=== PATIENT | female | born 1945 | race Caucasian/White ===

== ENCOUNTER → 2017-08-30 | Outpatient (CLI) | payer OTHER ==
[~2017-08-30] MED LIST: IOPAMIDOL (ISOVUE-300) 100 ML BTL ONE
== END ==
LOC: FIMAGING 13:57
PROVIDERS: ATTEND Family Medicine
DX: K83.1 Obstruction of bile duct (principal)
CPT/HCPCS: 74160; Q9967

== ENCOUNTER → 2017-10-12 | Outpatient (CLI) | payer OTHER ==
[~2017-10-12] MED LIST changes: +GADOBUTROL 10 ML VIAL IVP ONE; -IOPAMIDOL (ISOVUE-300) 100 ML BTL ONE
== END ==
LOC: FIMAGING 18:28
PROVIDERS: ATTEND Family Medicine
DX: R74.8 Abnormal levels of other serum enzymes (principal); R19.7 Diarrhea, unspecified; K44.9 Diaphragmatic hernia without obstruction or gangrene; R93.2 Abnormal findings on diagnostic imaging of liver and biliary tract; K80.20 Calculus of gallbladder without cholecystitis without obstruction
CPT/HCPCS: 74183; A9585

== ENCOUNTER 2017-10-15 16:15 | Emergency (ER) | payer OTHER ==
--- NOTE | 2017-10-15 16:48 | EDPHY ---
H & P Stated Complaint: Persistent vertigo x 10 yrs ,hx n/v/d;?cognitve problems Time Seen by Provider: 10/15/17 16:48 - Personal History Current Tetanus Diphtheria and Acellular Pertussis (TDAP): Unsure - Medical/Surgical History Hx Asthma: Yes Hx Chronic Respiratory Disease: No Hx Diabetes: No Hx Cardiac Disease: No Hx Renal Disease: No Hx Cirrhosis: No Hx Alcoholism: No Hx HIV/AIDS: No Hx Splenectomy or Spleen Trauma: No Other PMH: asthma, hypothyroid, dizziness - Social History Smoking Status: Never smoked Constitutional: Initial Vital Signs Temperature (C) 36.6 C 10/15/17 16:25 Heart Rate 79 10/15/17 16:25 Respiratory Rate 18 10/15/17 16:25 Blood Pressure 164/104 H 10/15/17 16:25 O2 Sat (%) 98 10/15/17 16:25 O2 Delivery Mode Room Air Allergies/Adverse Reactions: No Known Allergies Allergy (Verified 10/15/17 16:24) Home Medications: Medication Instructions Recorded "Specially Compounded T3-T4 10/15/17 Albuterol Hfa Anes Only [Proair 2 puffs IH QID 10/15/17 Hfa Icu (*)] Meclizine HCl [Meclizine HCl 12.5 12.5 mg PO QID PRN #10 tab 10/15/17 mg (*)] Medical Decision Making - Diagnostics Imaging Results: Imaging Impressions Brain MRI 10/15/17 17:29 Impression: 1. Multiple nonspecific hyperintense T2/FLAIR signal abnormalities in the white matter of bilateral cerebral hemispheres and brainstem. Differential diagnosis includes severe microvascular ischemic gliosis, versus less likely postinfectious/post inflammatory sequela. 2. A few old lacunar infarcts bilateral basal ganglia. 3. No acute infarct, acute hemorrhage, hydrocephalus or mass effect. 4. No brainstem or cerebellar infarcts or enhancing lesions. Findings and recommendations discussed with Emergency Department physician, Mukesh Henson MD, at 1932 hour, 10/15/2017. Final report concurs with initial preliminary interpretation. Imaging: Discussed imaging studies w/ call or contact centre team leader Radiologist, I viewed and interpreted images myself ED Course/Re-evaluation: CHIEF COMPLAINT: Dizziness, N/V HISTORY OF PRESENT ILLNESS: The patient is a 71 y/o female with a history of vertigo and asthma who presents with intermittent but progressive vertigo, nausea, and vomiting for the last 6 weeks. She has experienced intermittent vertigo over the last 10 years, but reports these more recent episodes over the last several weeks are more severe. During the first two weeks, she had moderate diarrhea that has since resolved. She had an abdominal CT in August related to her GI symptoms and elevated lipase and amylase that showed possible extrahepatic biliary obstruction. A follow-up abdominal MRI 3 days ago showed biliary dilation without obvious etiology. Last night she developed some mild abdominal pain that radiates around her right side to her back. This morning her dizziness was associated with "forgetfulness" and her is quite concerned about her. Her dizziness resolves while at rest and is worse when she is moving around her house. She has been treating her symptoms with [place] herbs and acupuncture without improvement. She has never had brain imaging performed. REVIEW OF SYSTEMS: A 10 point review of systems was performed and is negative with the exception of the elements mentioned in the history of present illness. PHYSICAL EXAM: HR, BP, O2 Sat, RR. Temp noted General Appearance: Alert, well hydrated, appropriate, and non-toxic appearing. Head: Atraumatic without scalp tenderness or obvious injury Eyes: Pupils equal, round, reactive to light and accommodation, EOMI, no trauma , no injection. Horizontal nystagmus when looking to the right. Ears: Clear bilaterally, no perforation, normal landmarks Nose: Atraumatic, no rhinorrhea, clear. Throat: Mucus membranes moist. Neck: Supple, nontender, no lymphadenopathy. Respiratory: No retractions, no distress, no wheezes, and no accessory muscle use. Lungs are clear to auscultation bilaterally. Cardiovascular: Regular rate and rhythm, no murmurs, rubs, or gallops. Good capillary refill all extremities. Gastrointestinal: Abdomen is soft, nontender, non-distended, no masses, no rebound, no guarding, no peritoneal signs. Musculoskeletal: Normal active ROM of all extremities, atraumatic. Neurological: Alert, appropriate, and interactive. The patient has non-focal cranial nerves, motor, sensory, and cerebellar exam. Mildly tremulous. Skin: No rashes, good turgor, no nodules on palpation. Past medical history: Asthma, hypothyroidism, vertigo Past surgical history: noncontributory Family history:Noncontributory Social history: , at bedside. No tobacco or alcohol use. Prior medical records reviewed including admission 12/21/15 for dyspnea. DIAGNOSTICS/PROCEDURES/CRITICAL CARE TIME: Brain MRI with and without IV contrast: negative for acute process, multiple white matter abnormalities DIFFERENTIAL DIAGNOSIS: The differential diagnosis for the patient's dizziness included but was not limited to peripheral and central causes of vertigo, orthostatic causes including dehydration, cardiogenic and neurogenic causes, and blood loss. MEDICAL DECISION MAKING: This is a 71 y/o female with a 10-year history of vertigo who presents with a 6- week history of vertiginous symptoms and associated nausea and vomiting. Recent abdominal imaging related to her N/V and elevated lipase showed biliary dilation without etiology. On exam, she is much more comfortable resting with her eyes closed and avoids moving her head. She has horizontal nystagmus when looking to the right. Her neuro exam is otherwise normal. She is afebrile and her abdomen is benign. Her symptoms could represent vertigo, but due to the long timeframe I need to rule out structural FILES SUPERVISOR and neurogenic causes with brain imaging. Brain MRI with and without contrast ordered. Plan for IV, labs, UA, EKG, and symptom management. 1L IV NS, 4mg IV Zofran, and 12.5mg PO Meclizine administered. Reassessed patient and discussed CT findings. CT is negative for acute process. She feels mildly improved after medication and is requesting more Zofran. She will receive a dose of Reglan here and then will be discharged home with standard vertigo care and follow up instructions with ENT and neurology. She is comfortable with this plan. will assist in home care. - Data Points Laboratory Results: Laboratory Results 10/15/17 18:15 10/15/17 18:15 10/15/17 10/15/17 10/15/17 18:15 18:15 18:15 WBC 8.93 10^3/uL 10^3/uL (3.80-9.50) RBC 5.11 10^6/uL 10^6/uL (4.18-5.33) Hgb 14.6 g/dL g/dL (12.6-16.3) POC Hgb Hct 44.1 % % (38.0-47.0) POC Hct MCV 86.3 fL fL (81.5-99.8) MCH 28.6 pg pg (27.9-34.1) MCHC 33.1 g/dL g/dL (32.4-36.7) RDW 15.3 % H % (11.5-15.2) Plt Count 304 10^3/uL 10^3/uL (150-400) MPV 9.8 fL fL (8.7-11.7) Neut % (Auto) 84.0 % H % (39.3-74.2) Lymph % (Auto) 10.4 % L % (15.0-45.0) [place] % (Auto) 4.6 % % (4.5-13.0) Eos % (Auto) 0.3 % L % (0.6-7.6) Baso % (Auto) 0.4 % % (0.3-1.7) Nucleat RBC Rel Count 0.0 % % (0.0-0.2) Absolute Neuts (auto) 7.49 10^3/uL H 10^3/uL (1.70-6.50) Absolute Lymphs (auto) 0.93 10^3/uL L 10^3/uL (1.00-3.00) Absolute Monos (auto) 0.41 10^3/uL 10^3/uL (0.30-0.80) Absolute Eos (auto) 0.03 10^3/uL 10^3/uL (0.03-0.40) Absolute Basos (auto) 0.04 10^3/uL 10^3/uL (0.02-0.10) Absolute Nucleated RBC 0.00 10^3/uL 10^3/uL (0-0.01) Immature Gran % 0.3 % % (0.0-1.1) Immature Gran # 0.03 10^3/uL 10^3/uL (0.00-0.10) PT 12.6 SEC SEC (12.0-15.0) INR 0.92 (0.83-1.16) APTT 26.3 SEC SEC (23.0-38.0) POC Sodium Sodium 142 mEq/L mEq/L (134-144) POC Potassium Potassium 4.3 mEq/L mEq/L (3.5-5.2) POC Chloride Chloride 108 mEq/L mEq/L (97-110) Carbon Dioxide 25 mEq/l mEq/l (22-31) Anion Gap 9 mEq/L mEq/L (8-16) POC BUN BUN 9 mg/dL mg/dL (7-23) Creatinine 0.8 mg/dL mg/dL (0.6-1.0) POC Creatinine Estimated GFR > 60 Glucose 122 mg/dL H mg/dL (70-100) POC Glucose Calcium 9.7 mg/dL mg/dL (8.5-10.4) Total Bilirubin 0.5 mg/dL mg/dL (0.1-1.4) Conjugated Bilirubin 0.3 mg/dL mg/dL (0.0-0.5) Unconjugated Bilirubin 0.2 mg/dL mg/dL (0.0-1.1) AST 135 IU/L H IU/L (14-46) ALT 108 IU/L H IU/L (9-52) Alkaline Phosphatase 119 IU/L IU/L (38-126) Total Protein 6.3 g/dL g/dL (6.3-8.2) Albumin 3.7 g/dL g/dL (3.5-5.0) Lipase 241 IU/L IU/L (23-300) 10/15/17 18:10 WBC RBC Hgb POC Hgb 15.3 gm/dL gm/dL (12.6-16.3) Hct POC Hct 45 % % (38-47) MCV MCH MCHC RDW Plt Count MPV Neut % (Auto) Lymph % (Auto) [place] % (Auto) Eos % (Auto) Baso % (Auto) Nucleat RBC Rel Count Absolute Neuts (auto) Absolute Lymphs (auto) Absolute Monos (auto) Absolute Eos (auto) Absolute Basos (auto) Absolute Nucleated RBC Immature Gran % Immature Gran # PT INR APTT POC Sodium 143 mEq/L mEq/L (134-144) Sodium POC Potassium 4.2 mEq/L mEq/L (3.3-5.0) Potassium POC Chloride 108 mEq/L mEq/L (97-110) Chloride Carbon Dioxide Anion Gap POC BUN 8 mg/dL mg/dL (7-23) BUN Creatinine POC Creatinine 0.8 mg/dL mg/dL (0.6-1.0) Estimated GFR Glucose POC Glucose 127 mg/dL H mg/dL (70-100) Calcium Total Bilirubin Conjugated Bilirubin Unconjugated Bilirubin AST ALT Alkaline Phosphatase Total Protein Albumin Lipase Medications Given: Discontinued Medications Meclizine HCl (Meclizine Hcl) 12.5 mg PO EDNOW ONE Stop: 10/15/17 17:31 Last Admin: 10/15/17 18:31 Dose: 12.5 mg Ondansetron HCl (Zofran) 4 mg IVP EDNOW ONE Stop: 10/15/17 17:28 Last Admin: 10/15/17 18:31 Dose: 4 mg Point of Care Test Results: 10/15/17 18:10 POC Sodium 143 POC Potassium 4.2 POC Chloride 108 POC BUN 8 POC Creatinine 0.8 POC Glucose 127 H Departure - Departure Disposition: Home, Routine, Self-Care Clinical Impression: Vertigo Condition: Good Instructions: Meclizine (By mouth), Ondansetron (By mouth), Vertigo (ED) Additional Instructions: 1. Take Meclizine as directed for vertigo symptoms. It may make you drowsy. Do not use prior to driving. 2. Use Zofran as prescribed as needed for nausea and vomiting. 3. Follow up with ENT for unimproved symptoms over the next few days. 4. Follow up with neurologist in the next week. 5. Return to the ED for worsening of condition. Referrals: Guido aMbry MD [Medical Doctor] - As per Instructions Lamar Franz MD [Primary Care Provider] - As per Instructions Jason Bueno MD [Medical Doctor] - As per Instructions Prescriptions: Meclizine HCl [Meclizine HCl 12.5 mg (*)] 12.5 mg PO QID PRN #10 tab PRN Reason: Dizziness Report Scribed for: Mukesh Henson Report Scribed by: Malka Alvarez Date of Report: 10/15/17 Time of Report: 17:13
[2017-10-15] MEDS ORDERED: ONDANSETRON 4 MG/2 ML VIAL IVP ONE (17:27)
[2017-10-15] MEDS ORDERED: MECLIZINE HCL 25 MG TAB PO ONE (17:30)
[2017-10-15 18:23] LABS: PLATELET COUNT 304 10^3/uL (150-400)
[2017-10-15 18:33] LABS: INR 0.92 (0.83-1.16); PROTIME(PATIENT) 12.6 SEC (12.0-15.0)
[2017-10-15] MEDS ORDERED: GADOBUTROL 10 ML VIAL IVP ONE (18:45)
[2017-10-15] MEDS ORDERED: METOCLOPRAMIDE 10 MG/2 ML VIAL IVP ONE (19:38)
[2017-10-15 19:59] VITALS: BP 182/104; PULSE 95; RESP 16; TEMP 98.4; O2SAT 95
== END 2017-10-15 19:58 | disposition home or self-care (01) ==
DX: R42 Dizziness and giddiness (principal); J45.909 Unspecified asthma, uncomplicated
CPT/HCPCS: 70553; 96374; 96375; 99285; A9585; J2405; J2765; 82947-QW

== ENCOUNTER 2017-11-06 16:35 | Inpatient (IN) | payer OTHER ==
--- NOTE | 2017-11-06 18:14 | EDPHY ---
H & P Time Seen by Provider: 11/06/17 17:54 HPI/ROS: CHIEF COMPLAINT: Intractable vertigo HISTORY OF PRESENT ILLNESS: The patient has had which she terms intractable vertigo starting on August of last year lasting for the past 2 months. She was seen in the ER and had a negative MRI of her brain on October 15. She was on meclizine but stopped working 4 days ago. She is here with severe vertigo which she describes as dizziness which happens every time she stands up or turns her head. Says he did with nausea and vomiting she is unable to stand walk or eat or drink anything. The meclizine stopped working 4 days ago. Not associated with neck pain or headache. It is associated with intermittent diarrhea and severe anxiety and weakness. REVIEW OF SYSTEMS: Eye: no change in vision ENT: no sore throat Cardiac: no chest pain or syncope Pulmonary: no cough or SOB Abdomen: No abdominal pain or vomiting Musculoskeletal: no back pain or neck pain Skin: no rash Neuro: no headache Constitutional: no fever : no urinary symptoms A comprehensive 10 point review of systems is otherwise negative aside from elements mentioned in the history of present illness. PAST MEDICAL HISTORY: Includes asthma hypothyroid and vertigo Social history: General Appearance: Alert and conversant, cooperative. Eyes: No scleral icterus. ENT, Mouth: Dry mucous membranes Respiratory: Normal respiratory effort, breath sounds equal, lungs are clear to auscultation. Cardiovascular: Regular rate and rhythm. Gastrointestinal: Abdomen is soft and non tender. Neurological: Alert, face symmetric, normal motor and sensory in extremities. Speech fluent, extraocular motion intact, [id number] normal bilaterally, no pronator drift. Skin: Warm and dry, no rashes. Musculoskeletal: No peripheral edema. Psychiatric: Not agitated. Emergency Department course/MDM: IV fluid hydration, Zofran 4 mg IV, Valium 5 mg IV. Admission for dehydration, intractable symptoms of dizziness for 2 months, currently unable to tolerate oral fluids or walk very well. Patient tells me she was sent by her primary care practice Dr. Franz for admission for intractable vertigo. 1944: Venous CO2 of 14, patient clinically also very dehydrated, admission for IV fluids for severe dehydration. Smoking Status: Never smoked Constitutional: Initial Vital Signs Temperature (C) 36.4 C 11/06/17 17:04 Heart Rate 94 11/06/17 17:04 Respiratory Rate 18 01/09/18 17:04 Blood Pressure 114/97 H 11/06/17 17:04 O2 Sat (%) 94 11/06/17 17:04 O2 Delivery Mode Room Air Allergies/Adverse Reactions: No Known Allergies Allergy (Verified 11/06/17 17:03) Home Medications: Medication Instructions Recorded "Specially Compounded T3-T4 10/15/17 Albuterol Hfa Anes Only [Proair 2 puffs IH QID 10/15/17 Hfa Icu (*)] Herbals/Supplements -Info Only 1 ea PO DAILY 11/06/17 Medical Decision Making - Diagnostics EKG Interpretation: 12-lead EKG interpreted by me; official reading is in trace master. My interpretation is sinus rhythm, low voltage in frontal leads, rate 80. Differential Diagnosis: Differential diagnosis considered for dizziness including but not limited to peripheral and central causes of vertigo, orthostatic causes including dehydration, and blood loss. Consult/Admit Bed Type: [place] [id number] - Data Points Medications Given: Albuterol (Ventolin Hfa Inhaler) 2 puffs IH QID SIERRA Stop: 05/05/18 20:59 Last Admin: 11/06/17 21:13 Dose: Not Given Hydralazine HCl (Apresoline) 10 mg IVP Q6HRS PRN PRN Reason: SBP Greater Than 160 Stop: 05/05/18 20:41 Last Admin: 11/06/17 22:01 Dose: 10 mg Lorazepam (Ativan Injection) 0.5 - 1 mg IVP Q8HRS PRN PRN Reason: Anxiety, Unable to Take PO Stop: 05/05/18 20:39 Last Admin: 11/06/17 22:01 Dose: 1 mg Discontinued Medications Diazepam (Valium Injection) 5 mg IVP EDNOW ONE Stop: 11/06/17 18:17 Last Admin: 11/06/17 18:32 Dose: 5 mg Sodium Chloride (Ns) 1,000 mls @ 0 mls/hr IV EDNOW ONE; Wide Open PRN Reason: Protocol Stop: 11/06/17 18:17 Last Admin: 11/06/17 18:32 Dose: 1,000 mls Sodium Chloride (Ns) 1,000 mls @ 0 mls/hr IV EDNOW ONE; Wide Open PRN Reason: Protocol Stop: 11/06/17 19:45 Last Admin: 11/06/17 21:22 Dose: Not Given Ondansetron HCl (Zofran) 4 mg IVP EDNOW ONE Stop: 11/06/17 18:17 Last Admin: 11/06/17 18:32 Dose: 4 mg Departure - Departure Disposition: [facility] Clinical Impression: Vertigo, Dehydration Condition: Good
[2017-11-06] MEDS ORDERED: ONDANSETRON 4 MG/2 ML VIAL IVP ONE (18:16)
[2017-11-06] MEDS ORDERED: DIAZEPAM 10 MG/2 ML SYR IVP ONE (18:16)
[2017-11-06] MEDS ORDERED: NS 1,000 ML IV ONE ×2 (18:16→19:44)
[2017-11-06 18:35] LABS: PLATELET COUNT 327 10^3/uL (150-400)
--- NOTE | 2017-11-06 18:39 | CPEKG ---
Heart Rate: 80 RR Interval: 750 P-R Interval: 168 QRSD Interval: 78 QT Interval: 400 QTC Interval: 462 P [place]: 73 QRS [place]: -14 T Wave [place]: 45 EKG Severity - OTHERWISE NORMAL ECG - EKG Impression: SINUS RHYTHM EKG Impression: LOW VOLTAGE IN FRONTAL LEADS Electronically Signed By: Hamilton Rojas 06-Nov-2017 18:39:38
[2017-11-06] MEDS ORDERED: ACETAMINOPHEN 325 MG TAB PO PRN (20:40)
[2017-11-06] MEDS ORDERED: PROMETHAZINE HCL 25 MG/ML INJ IVP PRN (20:40)
[2017-11-06] MEDS ORDERED: ONDANSETRON DISINTEGRATING 4 MG TAB PO PRN (20:40)
[2017-11-06] MEDS ORDERED: ALBUTEROL 200 PUFFS/18 GM MDI IH SCH (21:00)
--- NOTE | 2017-11-06 21:18 | GHP ---
[f rep st] HISTORY AND PHYSICAL DATE OF ADMISSION: 11/06/2017 CHIEF COMPLAINT: Dizziness/vertigo. HISTORY OF PRESENT ILLNESS: This is a 71-year-old female, who has had a past history of vertigo in t he last 10 years, in which episodes occur about twice a year, last for a week or so, and she usually gets acupuncture and herbal medicine to treat. However, in August, she started with an episode sim ilar to previous episodes, but it has continued until now. It has been especially worse in the last week or so. Meclizine does nothing to help. She describes the vertigo as she feels like she is spin jerrell rather than the world around her is spinning. It is actually better when she closes her eyes. She has had some nausea and some vomiting and decreased p.o. intake. She has also had chronic diarrh ea since then. This is also accompanied with an elevated lipase in July and elevated liver functi on tests in early September. She had a GI panel that was negative in July as well. Over the last week, she says the initial symptoms were generalized weakness and anxiety. She is no longer able to care for herself and primary care doctor sent her in. She also has a history of asthma, this appears to be quiescent. REVIEW OF SYSTEMS: A 10-point review of systems was obtained, other than stated was negative. PAST MEDICAL HISTORY: 1. Asthma. 2. Hypothyroidism. SOCIAL HISTORY: . No tobacco or alcohol. FAMILY HISTORY: Both parents are . PHYSICAL EXAMINATION: VITAL SIGNS: Afebrile, blood pressure is elevated at 194/124, heart rate 80, oxygen saturation 92% on room air. GENERAL: The patient is well developed, in no apparent distress. HEENT: Nonicteric sclerae. I do not see a lot in the way of nystagmus. NECK: Supple. No thyrom egaly. LUNGS: Good effort. Clear to auscultation bilaterally. CARDIOVASCULAR: Regular rate and r hythm. No murmurs, gallops. ABDOMEN: Positive bowel sounds. Soft, nontender, nondistended. No he patosplenomegaly. EXTREMITIES: No clubbing, cyanosis, or edema. SKIN: Without rash, warm, intact. NEUROLOGIC: Alert and oriented x3. Moving all 4 extremities equally. PSYCHIATRIC: Normal mood a nd affect. LABORATORY DATA: Chemistry is essentially normal, though a little bit acidotic. CBC is essentially normal as well. MRI of the brain, done 10/15/2017, shows no CVA. Abdominal MRI shows biliary dilata tion, with no visible etiology, up to [address] scan of the abdomen and pelvis done early August howed extrahepatic biliary obstruction. ASSESSMENT: This is a 71-year-old female presenting with several months worth of possible vertigo ve rsus lightheadedness. PLAN: 1. Vertigo/dizziness. Her description of her symptoms are not completely consistent with vertigo. Meclizine was working for her until about a week ago. She does have an appointment with both ENT and Neurology next week. We will get Neurology to see the patient in the morning. I am going to go ahe ad and order a CTA of the head and neck to look for vertebrobasilar insufficiency. We will also orde r orthostatic vital signs and treat her anxiety with benzodiazepines. 2. Biliary dilatation. I am not sure what the workup has been outpatient, but I could consider endo scopic pancreatic ultrasound. 3. Asthma. This appears quiescent. 4. Diarrhea. Seems to be a little bit better. Her GI pathogen panel is negative. /[id number]/MODL
[2017-11-06] MEDS: LORazepam 2 MG/ML INJ IVP PRN (22:01)
[2017-11-06] MEDS: hydrALAZINE 20 MG/ML VIAL IVP PRN (22:01)
[2017-11-06] MEDS: ONDANSETRON 4 MG/2 ML VIAL IVP PRN (22:20)
[2017-11-06] MEDS: ALBUTEROL HFA 200 PUFFS/8.5 GM MDI IH SCH (22:30)
[2017-11-07] MEDS: ALBUTEROL HFA 200 PUFFS/8.5 GM MDI IH SCH ×4 (05:18→20:06)
[2017-11-07] MEDS: ONDANSETRON 4 MG/2 ML VIAL IVP PRN ×3 (05:39→22:05)
[2017-11-07] MEDS ORDERED: NS 500 ML IV ONE (06:00)
[2017-11-07] MEDS: LORazepam 2 MG/ML INJ IVP PRN ×2 (09:02→17:09)
[2017-11-07] MEDS: ENOXAPARIN 40 MG/0.4 ML SYR SC SCH (09:03)
--- NOTE | 2017-11-07 10:30 | PDMN ---
Medical Necessity Medical necessity: est los>2mn for eval and rx of persistent veritigo/ dizziness x 2 mos, diarrhea, and biliary dilatation; admit for neuro consult and imaging, consider endoscopic pancreatic US ; comorbid asthma, hx vertigo; per order and H&P 11/06/17
[2017-11-07] MEDS ORDERED: IOPAMIDOL (ISOVUE 370) 100 ML BTL IV ONE (10:37)
--- NOTE | 2017-11-07 11:19 | NEUROPROG ---
Assessment: HOSPITAL NEUROLOGY CONSULT REQUESTING: Jv Alarcon MD REASON: vertigo HPI: 71 year old woman with longstanding "mild vertigo" presented to our ED 11/06 with worsening symptoms. She describes at least 10 years of mild symptoms characterized as a sense of movement inside her head. She denies pearl room-spinning vertigo. Her sensation manifests when she stands up or turns her head. She states sometimes she has a sense of mild lightheadedness. She has been treated successfully in the past with acupuncture and [place] herbs. However, over the last month she states her symptoms have significantly worsened. The sense of movement in her head has escalated. She now occasionally gets nauseated. She feels her cognition is blunted during episodes. She feels very anxious with the episodes , which is new. She is also getting flushed, sweaty with the episodes. She has a sense of generalized weakness with her episodes, but nothing focal. She finds sitting down and closing her eyes helps improve her symptoms. She is not having any visual disturbance including vision loss or double vision. No headaches or neck pain. No hearing changes. No sensory loss, speech/language changes. She has felt unsteady on her feet recently, but no falls. No incontinence, but recently had some diarrhea. No adventitial movements. She has never been evaluated by ENT or neurology, but has visits scheduled for next week. She was in our ED last month for her symptoms, and a MRI brain wow while symptomatic, which showed chronic microvascular ischemic changes in the white matter/brainstem, chronic lacunar infarcts in the bilateral basal ganglia, but nothing more. ROS: As per the HPI, otherwise a complete 12 point ROS was performed and is negative ALLERGIES AND MEDS: As recorded in the EMR - reviewed and reconciled PFSH: As per the intake H&P by Dr. Alarcon from 11/06/17 EXAM: VS reviewed in EMR GEN: WDWN laying in NAD HEENT: NCAT, sclera anicteric, conjunctiva not injected, MMM, oropharynx clear, no scalp tenderness NECK: supple, nontender, no meningismus CV: RRR s1 s2 wo m/r/c/g. Carotid pulses 2+ wo bruit NEURO: MS: awake, alert, oriented to all spheres. Speech nondysarthric, but very deliberate and soft. No language disturbance. Follows commands. Attends to both sides. Recent/remote memory grossly intact. Mood euthymic, but odd affect. Good fund of knowledge. CN: pupils 3mm round and reactive. Fundi with sharp discs. VFF. Primary gaze centered. Limited vertical gaze. Smooth pursuits with saccadic intrusions. No nystagmus. Facial sensation preserved. Face symmetric. Hearing grossly intact to finger rub. Palatoglossal movements intact. Shoulder shrug and head turn strong. MOTOR: normal bulk/tone. No adventitial movements. Full power throughout, though submax effort at first when testing BUEs. SENSORY: absent JPS/vib in great toes, otherwise intact. No extinction. COORD: no ataxia FN/HS. Agnes preserved. REFLEX: plantars equivocal. Sustained clonus about the ankles. BLE DTRS 4/4, BUE DTRs 3+/4. GAIT: deferred to PT safety eval DATA REVIEW: Labs reviewed in EMR PERSONALLY INTERPRETED RESULTS AND DATA: MRI brain wow from 10/15 reviewed as per HPI IMPRESSION AND RECOMMENDATIONS: // SPELLS OF A SENSE OF ABNORMAL MOVEMENT // HYPERREFLEXIA // CLONUS Patient with spells of a sense of movement within her head, as well as a constellation of accompanying symptoms. Her recent brain MRI while symptomatic does not reveal any central brain pathology that could be causing these. She does have very brisk and pathologic reflexes, so the possibility of cervicogenic dizziness is raised, with a dysfunction of cervical propriospinal afferents from a compressive lesion or other intramedullary process. Another consideration is a vascular etiology, with reduced flow to the cervical spine or perhaps even mild VBI. Will check CTA head/neck and MRI C-spine wo to screen for these issues. Objective: Vital Signs Temp Pulse Resp BP Pulse Ox 36.6 C 83 20 145/96 H 92 11/07/17 08:53 11/07/17 08:53 11/07/17 08:53 11/07/17 08:53 11/07/17 08:53 Laboratory Results 11/06/17 18:30 11/06/17 18:30 11/06/17 11/07/17 11/08/17 05:59 05:59 05:59 Intake Total 1550 Balance 1550 Allergies/Adverse Reactions: No Known Allergies Allergy (Verified 11/06/17 17:03)
--- NOTE | 2017-11-07 16:28 | ASMTCMCOM ---
CM Note CM Note Notes: Patient admitted for dizziness. She says she's suffered from "mild vertigo" for years and is having worsening symptoms. Head/neck CT and MRI ordered by neurology. Patient is normally independent and lives with her . I do not anticipate that she will have any discharge needs, but Case Management is available if that changes. Date Signed: 11/07/2017 04:28 PM Electronically Signed By:Kinsey Way RN
--- NOTE | 2017-11-07 16:35 | HOSPPROG ---
Hospitalist Progress Note Assessment/Plan: The patient is a a 71-year-old female who was admitted for dizziness, nausea, gen weakness x several months. ASSESSMENT/PLAN: Active Problem list: Dizziness Intractable nausea with some vomiting Cephalgia w/ photophobia Severe anxiety Intermittent flushing vs fever (subjective) Gen weakness Polycythemia, mild AGMA on admission Diarrhea Assessment: Dizziness Ddx etiology of dizziness- vestibular neuritis, metabolic, anxiety provoked less likely Meniere disease Neuro consulted - recs appreciated. CTA Head/Neck unremarkable. MRI neck pending. MRI brain unremarkable. Possible a/w anxiety. Nausea/vomiting Porcelain Gallbladder Gallstones Occasional abd pain CBD dilatation (w/o abnl LFTs) Ddx etiology - vestibular neuritis, biliary/hepatic/gall bladder dysfunction, metabolic doubt AI cause at her age Gen Surg consult in AM for recs Reviewed recent MRCP and abd CT- no obstructing stones needing to be removed. Test for carcinoid - uncommon, but she has some symptoms (with Sx of diarrhea, STAPLES, intermittent flushing/fever, anxiety, asthma, etc) Asthma SVNs scheduled, MDI prn, O2 prn Anxiety Told pt that we cannot give too much benzos as they have bad s/e Must avoid s/e like delirium, memory/cognition changes. Must avoid developing dependence on benzos. Starting buspirone instead to help w/ anxiety. Consider to switch from IV Ativan to a po Ativan or Valium in the future AGMA test for some potential causes. recheck labs in AM. query starvation ketoacidosis since she eats very little Gen weakness Encouraged pt to move around w/ PT/OT. If she is unable to walk, at least do leg exercises in bed to prevent deconditioning. VTE prophylaxis: Lovenox Code Status: Full code Status: Inpatient for greater than 2 midnight stay. Disposition: Med surge with discharge not anticipated tomorrow This patient is new to me. I have reviewed her chart and prior records from this visit. ____ SUBJECTIVE: The pt c/o constant nausea. She c/o feeling lightheaded/dizzy when she moves or walks. She STAPLES at the crown of her head which has occurred often since Nov, for which she avoids light. +dizziness, nausea, gen weakness x several months. She reports that she does not have vertigo, rather feels lightheaded - but this is worse with movement or getting up. C/o severe anxiety, generalized weakness, and facial flushing (hot flashes) about 3 times a day since October. +diarrhea x 3 weeks which improved, but just returned again 2 weeks ago. C/o being unable to eat anything besides Jello bc "rich" foods cause vomiting. C/o a single episode of abd pain, severe and aching in RUQ w/ radiation straight to the back - lasted for a few hours one day and self resolved. She believes she ate something "rich" prior to this incident. ROS: negative except as stated above. No jt pains, skin changes, paresthesias, syncope. OBJECTIVE: Physical Exam: General: The patient is an elderly female who is alert and in no acute distress. HEENT: normocephalic, extraocular movements intact, conjunctivae clear. Mucous membranes moist. Neck: trachea midline, no visible masses. CV: +S1/S2, RRR, no MRG. Resp: unlabored, CTAB no RRW. Abd: soft and nondistended. Bowel sounds present. Non tender throughout abdomen. Musculoskeletal: Normal muscle tone/bulk. Neuro: cranial nerves II XII grossly intact. Intact gross motor and sensory function. Psych: Anxious mood and appropriate affect. Skin: Mild pallor. No petechiae. Heme/lymph: No peripheral edema at bilateral lower extremities. Labs/Imaging/Other Tests: Personally reviewed/interpreted. TSH WNL. LFT WNL. Objective: Vital Signs Temp Pulse Resp BP Pulse Ox 36.6 C 77 16 145/96 H 95 11/07/17 08:53 11/07/17 11:38 11/07/17 11:38 11/07/17 08:53 11/07/17 11:38 Laboratory Results 11/06/17 18:30 11/06/17 18:30 11/06/17 11/07/17 11/08/17 05:59 05:59 05:59 Intake Total 1550 Balance 1550 CTA Head/Neck: Impression: 1. Mild calcified plaque at the carotid bulb bilaterally with mild stenosis on the right measuring about 55-65% stenosis without significant narrowing on the left. 2. No evidence of stenosis involving the vertebral system within the neck or narrowing of the posterior circulation within the head. 3. Mild narrowing involving the distal M1 segment on the left possibly related to noncalcified plaque. The [place] is otherwise normal in appearance. Note: All calculations were performed using NASCET criteria. Brain MRI: Impression: 1. Multiple nonspecific hyperintense T2/FLAIR signal abnormalities in the white matter of bilateral cerebral hemispheres and brainstem. Differential diagnosis includes severe microvascular ischemic gliosis, versus less likely postinfectious/post inflammatory sequela. 2. A few old lacunar infarcts bilateral basal ganglia. 3. No acute infarct, acute hemorrhage, hydrocephalus or mass effect. 4. No brainstem or cerebellar infarcts or enhancing lesions. Abd MRI: Impression: 1. Biliary dilatation with no visible etiology. Consider ERCP. 2. Cholelithiasis with calcification of the gallbladder wall suggesting porcelain gallbladder. 3. Moderate hiatal hernia. 4. Additional findings. CT abd/pelvis: Impression: Extrahepatic biliary obstruction. Pancreatitis versus uncinate process mass extending into medial wall of the descending duodenum in the region of the ampulla. Recommend MRCP and MRI of the pancreas without and with contrast for further evaluation. - Time Spent With Patient Time Spent with Patient: greater than 35 minutes Time Spent with Patient: Greater than 35 minutes spent on this patients care, greater than 50% of time spent counseling, educating, and coordinating care regarding the above mentioned plan. ICD10 Worksheet Patient Problems: Problems Problem Status Onset Dehydration Acute Vertigo Acute Asthma Acute Asthma exacerbation Acute Asthma with exacerbation Acute
[2017-11-07] MEDS: busPIRone 5 MG TAB PO SCH (22:05)
[2017-11-08] MEDS: LORazepam 2 MG/ML INJ IVP PRN (01:07)
[2017-11-08] MEDS: hydrALAZINE 20 MG/ML VIAL IVP PRN (01:15)
[2017-11-08 05:28] LABS: PLATELET COUNT 299 10^3/uL (150-400)
[2017-11-08] MEDS: ALBUTEROL HFA 200 PUFFS/8.5 GM MDI IH SCH ×4 (05:28→20:10)
[2017-11-08] MEDS: busPIRone 5 MG TAB PO SCH ×2 (09:09→15:30)
[2017-11-08] MEDS: ENOXAPARIN 40 MG/0.4 ML SYR SC SCH (09:09)
--- NOTE | 2017-11-08 12:43 | NEUROPROG ---
Assessment: BACKGROUND: 11/07 71 year old woman with longstanding "mild vertigo" presented to our ED 11/06 with worsening symptoms. She describes at least 10 years of mild symptoms characterized as a sense of movement inside her head. She denies pearl room-spinning vertigo. Her sensation manifests when she stands up or turns her head. She states sometimes she has a sense of mild lightheadedness. She has been treated successfully in the past with acupuncture and [place] herbs. However, over the last month she states her symptoms have significantly worsened. The sense of movement in her head has escalated. She now occasionally gets nauseated. She feels her cognition is blunted during episodes. She feels very anxious with the episodes , which is new. She is also getting flushed, sweaty with the episodes. She has a sense of generalized weakness with her episodes, but nothing focal. She finds sitting down and closing her eyes helps improve her symptoms. She is not having any visual disturbance including vision loss or double vision. No headaches or neck pain. No hearing changes. No sensory loss, speech/language changes. She has felt unsteady on her feet recently, but no falls. No incontinence, but recently had some diarrhea. No adventitial movements. She has never been evaluated by ENT or neurology, but has visits scheduled for next week. She was in our ED last month for her symptoms, and a MRI brain wow while symptomatic, which showed chronic microvascular ischemic changes in the white matter/brainstem, chronic lacunar infarcts in the bilateral basal ganglia, but nothing more. INTERVAL HISTORY: 11/08: She feels the same, still experiencing symptoms. EXAM: VS reviewed in EMR MS: awake, alert, oriented to all spheres. Speech nondysarthric, but very deliberate and soft. No language disturbance. Follows commands. Attends to both sides. Recent/remote memory grossly intact. Mood euthymic, but odd affect. Good fund of knowledge. CN: pupils 3mm round and reactive. Fundi with sharp discs. VFF. Primary gaze centered. Limited vertical gaze. Smooth pursuits with saccadic intrusions. No nystagmus. Facial sensation preserved. Face symmetric. Hearing grossly intact to finger rub. Palatoglossal movements intact. Shoulder shrug and head turn strong. MOTOR: normal bulk/tone. No adventitial movements. Full power throughout, though submax effort at first when testing BUEs. SENSORY: absent JPS/vib in great toes, otherwise intact. No extinction. COORD: no ataxia FN/HS. Agnes preserved. REFLEX: plantars equivocal. Sustained clonus about the ankles. BLE DTRS 4/4, BUE DTRs 3+/4. GAIT: deferred to PT safety eval DATA REVIEW: Labs reviewed in EMR PERSONALLY INTERPRETED RESULTS AND DATA: MRI brain wow from 10/15 reviewed as per background section MRI C-spine - C3-4 and C5-6 disc/osteophyte complexes resulting in severe central canal stenosis with cord compression/deformity without cord edema. CTA head/neck - no hemodynamically significant stenosis IMPRESSION AND RECOMMENDATIONS: // SPELLS OF A SENSE OF ABNORMAL MOVEMENT // HYPERREFLEXIA // CLONUS Patient with spells of a sense of movement within her head, as well as a constellation of accompanying symptoms. Her recent brain MRI while symptomatic does not reveal any central brain pathology that could be causing these. CTA head/neck shows not stenotic lesions, particularly of the posterior circulation, so VBI ruled out. Possibility of cervicogenic dizziness was raised given her hyperreflexia and clonus - MRI does show multilevel cord compression, but without edema. She has no other myelopathic signs/symptoms. Certainly may be anxiety related, too. For now, I would recommend outpatient neurotology/audiology evaluation at the [facility] lab, where she can have advanced testing like rotary chair evaluation - this may help differentiate cervicogenic process (rotation while keeping head/neck still), inner ear dysfunction, or lack of any identifiable peripheral etiology, thus making anxiety the likely diagnosis. Will sign off. Recall PRN. 25 mins direct patient care activities on the floor. Objective: Vital Signs Temp Pulse Resp BP Pulse Ox 36.9 C 92 18 155/83 H 92 11/08/17 09:02 11/08/17 09:02 11/08/17 09:02 11/08/17 09:02 11/08/17 09:02 Laboratory Results 11/08/17 04:05 11/08/17 04:05 11/07/17 11/08/17 11/09/17 05:59 05:59 05:59 Intake Total 1550 3000 Output Total 450 Balance 1550 2550 Allergies/Adverse Reactions: No Known Allergies Allergy (Verified 11/06/17 17:03)
--- NOTE | 2017-11-08 13:34 | GCON ---
[f rep st] CONSULTATION NEUROSURGICAL CONSULTATION CHIEF COMPLAINT: Weakness. HISTORY OF PRESENT ILLNESS: The patient is a 72-year-old female who [facility]. For several months, she has been having diarrhea with general weakness. O n October 30, she had what she describes as a precipitous episode of anxiety with general weakness. She was admitted by Medicine and underwent a fairly extensive workup. She was also seen by Neurolog y who ordered an MRI of her brain and an MRI of the cervical spine. Neurosurgical consultation was r equested. Her neurosurgical consultation was requested for cervical stenosis. The patient is not daugherty ving any neck pain. She denies any upper extremity radicular pain. She has had some general upper e xtremity weakness with some loss of medical coding technician strength. She denies any upper extremity numbness or bowel or bladder problems. She has had some ataxia. PAST MEDICAL HISTORY: 1. Asthma. 2. Hypothyroidism. MEDICATIONS: Prior to admission, are albuterol and herbal supplements. ALLERGIES: No known drug allergies. FAMILY HISTORY: Patient has no family history of spine problems. SOCIAL HISTORY: Patient is with no children. She denies smoking, drinking or drug use. REVIEW OF SYSTEMS: Negative. PHYSICAL EXAM: GENERAL: The patient is a 72-year-old female lying in bed, in no apparent distress. HEAD, EYES, EARS, NOSE, AND THROAT: Negative for drainage. EXTREMITIES: [place], warm and dry. NEUR OLOGICAL: The patient is awake, alert, oriented x4. Pupils equal, round, reactive to light. Extrao cular motions are intact. There is no evidence of facial droop. Tongue and uvula are midline. Spin al accessory muscles are intact. Her motor strength is 5/5 in her arms and hands with the exception of her left medical coding technician, which is subtly weak at 5-/5. Her sensation is grossly intact to light touch in he r arms and legs. Deep tendon reflexes are 3+/4 in the bilateral biceps, triceps, brachialis; 4+/4 in the bilateral patellar and Achilles. There is a positive Garrido's bilaterally with 5-6 beats of cl onus bilaterally. DIAGNOSTIC STUDIES: An MRI of the brain from [facility] on 10/15/2017, shows no rmal brain parenchymal tissue. There is no evidence of any mass lesions or extra-axial fluid collect ions. MRI of the cervical spine on 11/07/2017, shows preservation of the sagittal alignment. There are mod erate multilevel degenerative changes. C5-6, there is a broad-based disk herniation with moderate li gamentum hypertrophy that produces moderate to severe central canal stenosis. IMPRESSION: This is a 72-year-old female who presents to [facility] with a myriad of symptoms. She has been having some general weakness, ataxia and loss of medical coding technician strength, which may be related to her underlying cervical stenosis at C5-6. She is neurologically stable. PLAN: All the above issues were discussed in detail with the patient. This patient was seen and exa mined with Dr. Todd present. At this point in time, the patient has multiple symptoms that are not likely related to underlying cervical stenosis, including her flushing, diarrhea, and anxiety . She is having some general weakness, hand weakness, ataxia, and gross hyperreflexia that is likely related to underlying cervical stenosis at C5-6. She would likely benefit from a C5-6 anterior cerv ical diskectomy and fusion for decompression, stabilization of her cervical spine at the C5-6 level. She understands the goal of the surgery would be to stop the progression of her myelopathic symptoms and minimize the risk of a spinal cord injury if she was involved in a traumatic event. This could either be done during this admission or she can be discharged and we can follow up with her in clinic in the next 1-2 weeks. Please call with any neurological changes. /[id number]/MODL
--- NOTE | 2017-11-08 13:34 | GCON ---
[f rep st] CONSULTATION DATE OF CONSULTATION: 11/08/2017 CHIEF COMPLAINT: Dizziness with nausea and vomiting, incidental findings of porcelain gallbladder on imaging. HISTORY OF PRESENT ILLNESS: This is a 72-year-old female admitted to the medical service for persist ent vertigo with persistent dizziness and nausea. At any rate, she has been admitted since the nd continues to have persistent dizziness with nausea. At any rate, the patient subsequently had an MR of her abdomen on October 12, 2017, which showed cholelithiasis and calcification of the gallblad glenda wall suggesting porcelain gallbladder without any secondary signs of cholecystitis. Given the fa ct that the patient had persistent nausea with dizziness, she was referred by her primary care to the emergency department. On my evaluation today, the patient endorses persistent dizziness pretty much throughout the day and a baseline level of nausea throughout the day. She also states that the naus ea really does not have any correlation with oral intake other than eating anything makes it bad but states that she is always nauseated at some level. She does not really note any worsening with certa in foods. She has not really eaten much over the last 2 weeks, stating that she can really only take Jell-O. She denies having any previous or current history of abdominal pain. States that her main complaint is this persistent vertigo with nausea, in addition to a new finding of anxiety. She also states that she has been very weak, likely secondary to the fact that she has not eaten anything over the last 2 weeks. She denies having any fevers or chills, and prior to this, denies ever having any issues with her gallbladder for which she was seen or evaluated. PAST MEDICAL HISTORY: Vertigo, asthma, hypothyroidism. PAST SURGICAL HISTORY: None. CURRENT MEDICATIONS: Reviewed. ALLERGIES: None. FAMILY HISTORY: Noncontributory. SOCIAL HISTORY: Lives independently. Denies illicit drug use. REVIEW OF SYSTEMS: A full 10-point review was performed, and unless stated above, is otherwise negat jimmy. PHYSICAL EXAMINATION: VITAL SIGNS: Temp 36.9, blood pressure 155/83, heart rate 92, and she is 92% on 2 L nasal cannula. CONSTITUTIONAL: She is in no apparent distress. She is sleepy and comfortabl e appearing. EYES: Her pupils are equal, round, and reactive to light. She has anicteric sclerae. EARS/NOSE/MOUTH/THROAT: She has dry mucous membranes. Her hearing is normal. Her ears appear norm al with no oral mucosal ulcers. CARDIOVASCULAR: She has a regular rate and rhythm without any murmu rs. RESPIRATORY: She has no respiratory distress, rales, or rhonchi. She is otherwise clear to aus cultation. GI: She has normoactive bowel sounds. She is soft, nondistended, nontender without rebo und tenderness or guarding. No previous surgical scars appreciable. SKIN: Warm. Normal color. No rashes. MUSCULOSKELETAL: Full strength. No weakness. No tenderness. NEUROLOGIC: She is alert a nd oriented x3. Her cranial nerves 2-12 are intact. She had no weakness. No numbness. PSYCH: She is interacting appropriately. She is not anxious. LYMPH/HEME/IMMUNOLOGIC: She has no cervical or groin lymphadenopathy appreciated. MEDICAL DECISION MAKING: Labs: White count normal at 5.8. H and H stable at 14 and 43. Her platel ets are 299. She does not have a left shift. Chemistry is unremarkable. Her LFTs are unremarkable and normal. Imaging includes an abdominal MR from October 12, the images of which were personally reviewed, which does show cholelithiasis. No secondary signs of cholecystitis and what appears to b e a calcified gallbladder wall. ASSESSMENT AND PLAN: A 72-year-old female with persistent vertigo and nausea with incidental finding s of porcelain gallbladder. I was asked to evaluate the patient as to whether or not I feel as thoug h she has biliary-type symptoms which are exacerbating her current symptoms. After evaluating the hunter sabi and reviewing her labs and imaging, I do not feel as though her gallbladder is contributing as she continues to have a persistent level of nausea which seems to be unrelated to really any p.o. int deandre. I would anticipate that if she had some type of gallbladder issue it would be worse with certai n foods, and she would not be persistently nauseated. At any rate, I do feel as though her porcelain gallbladder needs attention given the fact that the diagnosis in and of itself can carry a cancer ri sk, around 2%, and feel that she should be evaluated, and once she gets better from a vertigo standpo int and is actually able to the eat and keep some protein down, which would aid in healing, she would be a reasonable surgical candidate. I discussed these findings with the patient. She understands t hat she needs to follow up and have her gallbladder addressed. I do not feel a so cholecystectomy th is admission would help her with her other symptoms. I discussed these findings with her hospitalist , Dr. Coley, who agrees. I have provided her with my information for followup so that we can addres s this issue on an outpatient basis. /[id number]/MODL
[2017-11-08] MEDS ORDERED: FLU VACC QS 2017-18 (3YR+)/PF 0.5 ML SYR (FLUARIX QUAD) IM ONE (15:31)
[2017-11-08] MEDS ORDERED: PNEUMOC 13-VAL CONJ-DIP CRM/PF 0.5 ML SYR IM ONE (15:32)
--- NOTE | 2017-11-08 17:25 | HOSPPROG ---
Hospitalist Progress Note Assessment/Plan: DIAGNOSES: -2 months duration of a complex of multiple symptoms of uncertain etiology, uncertain connection, -dizziness that is described as an orthostatic lightheadedness but sometimes also occurring without standing; orthostatic blood pressure drops are noted on exam here -intermittent flushing episodes occurring generally approximately 3 times daily mostly facial and neck but sometimes in other areas; dermatographia some demonstrated by my exam today -generalized weakness with some focal weakness in hand and some hyper reflexia suggesting neurologic component to her syndrome -nausea vomiting and diarrhea -severe and increasing anxiety -cervical spine stenosis with cord compression -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 Cayden Martin or. The patient has a porcelain gallbladder and risk for cancer related to that and needs eventual cholecystectomy but this is not an urgent problem and this does not appear to be causing any of her current symptoms. She may have had gallstones contributing to some of her symptoms in September but I do not think that is contributing at this time. The patient does have cervical spine stenosis and disc disease causing nerve room impingement at the cervical spine, and this is likely contributing to some of her symptoms of weakness and hyper reflexia. A surgical approach to her cervical disease is recommended, but this is not what is causing her major symptoms right now and the surgery can be delayed depending on what we determine regarding her other symptoms. The spine disease does not account for much of her symptomatology. Her episodes of flushing, episodes of dizziness, vomiting diarrhea, anxiety, and history of asthma and dermatographism noted on exam are all suggestive of the possibility of either carcinoid syndrome or mastocytosis. These are both very unusual syndromes but her presentation does or at least consideration of these. In addition I would consider that her syndrome could be a new onset of a primary anxiety disorder. This is quite a collection of symptoms to be brought on by anxiety but all of the symptoms could be caused by or aggravated by anxiety. A 24 hr urine collection for 5 HIAA was started yesterday morning but the patient was not understanding instructions and discarded much of her urine. There was an attempt to restart the 24 hr work collection last night but there was not a clear empty bladder start time. Therefore we will need to resume her urine collection tomorrow morning and I reviewed the details of how to do this with her nurses. The patient does now understand that she cannot discard any of her urine during the collection. Also because of the consideration of possible mastocytosis I did add orders for 24 hour histamine to be done from the same urine collection. In addition to these considerations, Dr. Garcia recommend considering a cervical spine related disequilibrium or auditory canal issue. This could explain her sense of dizziness perhaps though and auditory canal issue would be more likely to cause vertigo which she does not have and a cervical spine disorder would not explain her flushing or her diarrhea. Recommendation was to consider rotary chair testing at [facility], and this may be reasonable but she would have to be referred there in the outpatient setting. In addition to do thing these urine tests I have ordered a serum tryptase level which would be helpful if the she had mastocytosis. If she remains highly symptomatic as we go through her hospital stay we could consider a trial of antihistamine therapy for mastocytosis to see if that is helpful while waiting for her urine and blood studies to return. If her symptoms improved significantly such that she can go home she can complete her workup as an outpatient. I would refer her to Dr. Rakel Ramey an clam dredge boat captain at [facility] who has significant spirits with these syndromes. She might also need to visit with her primary care physician or a psychiatrist to assess her anxiety issues. Notably her anxiety here has been treated with some benzodiazepines in the way of Ativan and Valium. She finds these medicines helpful her for her anxiety symptom, however she has been clock watching and very adamant about calling for these doses from the nurse as soon as the time is up. I have discussed with her in detail today that I think these medicines are potentially hazardous for her with increased fall risk given her dizziness and instability on her feet and her weakness, as well as the high potential for causing a medication induced perpetuated anxiety state leaving her essentially addicted her habituated to benzodiazepines. In addition it is noted that the patient is very unwilling to get up out of bed very much here because she gets some dizziness with this. I did discuss with her the necessity to avoid loss of neurovascular reflexes which will aggravate her orthostatic symptom if she does not get up on her feet and spent time in a chair. She is very resistant to this idea so far will need to keep working with her on this. In terms of her cervical spine surgery, would wait until we see what progression her symptoms take here in the hospital before determining the optimal timing for that. SUBJECTIVE: She continues to complain of a non vertiginous orthostatic lightheadedness, several times per day episodes of facial neck or other flushing, nausea, loose stools, weakness, anxiety No abdominal pain and no other new symptoms. 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: Exam: alert oriented fairly anxious skin warm dry color ok; I do find a positive dermatographism some sign on her face and on her back resps not labored lungs clear BSs heart regular abd soft nondistended nontender, bowel sounds present limbs warm, no edema iv site ok All laboratory data reviewed Objective: Vital Signs Temp Pulse Resp BP Pulse Ox 36.9 C 85 18 151/84 H 94 11/08/17 16:53 11/08/17 16:53 11/08/17 16:53 11/08/17 16:53 11/08/17 16:53 Laboratory Results 11/08/17 04:05 11/08/17 04:05 11/07/17 11/08/17 11/09/17 06:59 06:59 06:59 Intake Total 1550 3000 Output Total 450 Balance 1550 2550 - Time Spent With Patient Time Spent with Patient: greater than 35 minutes Time Spent with Patient: Greater than 35 minutes spent on this patients care, greater than 50% of time spent counseling, educating, and coordinating care regarding the above mentioned plan. ICD10 Worksheet Patient Problems: Problems Problem Status Onset Dehydration Acute Vertigo Acute Asthma Acute Asthma exacerbation Acute Asthma with exacerbation Acute
[2017-11-09] MEDS: busPIRone 5 MG TAB PO SCH ×4 (00:48→22:22)
[2017-11-09] MEDS: hydrALAZINE 20 MG/ML VIAL IVP PRN (04:20)
[2017-11-09] MEDS: ALBUTEROL HFA 200 PUFFS/8.5 GM MDI IH SCH ×4 (06:37→19:59)
--- NOTE | 2017-11-09 07:14 | SOAPPROG ---
KENNA Progress Note Assessment/Plan: Assessment: 72 yo female with C5/6 stenosis, generalized weakness and huyper reflexia. She has other medical issues that brought her into the hospital which are currently being addressed. Plan: Follow up as outpatient with Dr. Chapman to discuss C5/6 Fusion. We will sign off today. 11/09/17 07:13 11/09/17 10:04 Subjective: Sitting at edge of bed about to work with PT. No new neuro issues this AM. Kaila understands that she has C5/6 stenosis and that we will see her in follow up as an outpatient. 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
[2017-11-09] MEDS: LORazepam 2 MG/ML INJ IVP PRN ×2 (09:54→20:25)
[2017-11-09] MEDS: ENOXAPARIN 40 MG/0.4 ML SYR SC SCH (09:54)
--- NOTE | 2017-11-09 16:27 | ASMTCMCOM ---
CM Note CM Note Notes: Anticipate pt will d/c when medically stable PT/OT have cleared pt. Pt will follow up with neurosurgery on an outpatient basis for the stenosis. CM available for changes/needs. Date Signed: 11/09/2017 04:26 PM Electronically Signed By:IVETTE Lozano
--- NOTE | 2017-11-09 19:03 | HOSPPROG ---
Hospitalist Progress Note Assessment/Plan: DIAGNOSES: -2 months duration of a complex of multiple symptoms of uncertain etiology, uncertain connection, -dizziness that is described as an orthostatic lightheadedness but sometimes also occurring without standing; orthostatic blood pressure drops are noted on exam here -intermittent flushing episodes occurring generally approximately 3 times daily mostly facial and neck but sometimes in other areas; dermatographia some demonstrated by my exam today -generalized weakness with some focal weakness in hand and some hyper reflexia suggesting neurologic component to her syndrome -nausea vomiting and diarrhea -severe and increasing anxiety -severe cervical spine stenosis with cord compression and associated hand weakness and hyper reflexia -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 These are both very unusual syndromes but her presentation does or at least consideration of these. In addition I would consider that her syndrome could be a new onset of a primary anxiety disorder. This is quite a collection of symptoms to be brought on by anxiety but all of the symptoms could be caused by or aggravated by anxiety. A 24 hr urine collection for 5 HIAA was previously started but the patient was not understanding instructions and discarded much of her urine. The collection was restarted with proper instructions this morning November 09. I reviewed the details of how to do this with her nurses and The patient does now understand that she cannot discard any of her urine during the collection. Also because of the consideration of possible mastocytosis I did add orders for 24 hour histamine to be done from the same urine collection. In addition to do thing these urine tests I have ordered a serum tryptase level which would be helpful if the she had mastocytosis. In addition to these considerations, Dr. Garcia recommend considering a cervical spine related disequilibrium or auditory canal issue. This could explain her sense of dizziness perhaps though and auditory canal issue would be more likely to cause vertigo which she does not have and a cervical spine disorder would not explain her flushing or her diarrhea. Recommendation was to consider rotary chair testing at [facility], and this may be reasonable but she would have to be referred there in the outpatient setting. Once the urine collection for lab studies is completed tomorrow morning, have ordered a trial of scheduled dosing of IV Benadryl to see if this causes significant improvement in her presenting symptoms. If so, this would indicate increased likelihood of a mast cell to granulation syndrome causing her symptoms. In that case she could be sent home on scheduled Benadryl dosing but if she does not get better would not continue this therapy at present. Either way I would refer her in the outpatient setting to Dr. Rakel Ramey an tester food products at [facility] who has significant experience with these syndromes. If she does not respond to the Benadryl, I would consider a higher likelihood that this is a primary depression or anxiety syndrome and we could consider adding an antidepressant medicine to her regimen. Notably her anxiety here has been treated with some benzodiazepines in the way of Ativan and Valium. She finds these medicines helpful her for her anxiety symptom, however she has been clock watching and very adamant about calling for these doses from the nurse as soon as the time is up. I have discussed with her in detail today that I think these medicines are potentially hazardous for her with increased fall risk given her dizziness and instability on her feet and her weakness, as well as the high potential for a medication induced perpetuation of anxiety state leaving her essentially addicted or habituated to benzodiazepine likely without much improvement in symptoms. I have reviewed the patient's case in detail with the neurosurgery team. The patient does have cervical spine stenosis and disc disease causing nerve room impingement at the cervical spine, and this is likely causing her symptoms of weakness and hyper reflexia. A surgical approach to her cervical disease is recommended, but this is not what is causing her major symptoms right now and the surgery can be delayed while we try to resolve her major presenting symptoms. This however should be taking care of is could progress in cause irreversible weakness, it does understand this. Recommend referring her for outpatient visit with Dr. Washburn for further assessment once her orthostasis flushing nausea and malnutrition are better controlled I have reviewed her case in detail with Dr. Cayden Vazquez. The patient has a porcelain gallbladder and risk for cancer related to that and needs eventual cholecystectomy but this is not an urgent problem and this does not appear to be causing any of her current symptoms. She may have had gallstones contributing to some of her symptoms in September but I do not think that is contributing at this time. SUBJECTIVE: She continues to complain of a non vertiginous orthostatic lightheadedness, several times per day episodes of facial neck or other flushing, nausea, loose stools, weakness, bed as was the case yesterday her main complaint is severe anxiety No abdominal pain and no other new symptoms. 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: Exam: alert oriented fairly anxious I did observe the patient walking in the hallway today and she seemed to be doing so without difficulty skin warm dry color ok; I do again find a positive dermatographism some sign on her face and on her back resps not labored lungs clear BSs heart regular abd soft nondistended nontender, bowel sounds present limbs warm, no edema iv site ok All laboratory data reviewed Objective: Vital Signs Temp Pulse Resp BP Pulse Ox 36.8 C 98 16 134/77 H 94 11/09/17 16:00 11/09/17 16:00 11/09/17 16:00 11/09/17 16:00 11/09/17 16:00 Laboratory Results 11/08/17 04:05 11/08/17 04:05 11/08/17 11/09/17 11/10/17 06:59 06:59 06:59 Intake Total 3000 2800 Output Total 450 900 400 Balance 2550 -900 2400 - Time Spent With Patient Time Spent with Patient: greater than 35 minutes Time Spent with Patient: Greater than 35 minutes spent on this patients care, greater than 50% of time spent counseling, educating, and coordinating care regarding the above mentioned plan. ICD10 Worksheet Patient Problems: Problems Problem Status Onset Dehydration Acute Vertigo Acute Asthma Acute Asthma exacerbation Acute Asthma with exacerbation Acute
[2017-11-10] MEDS: ALBUTEROL HFA 200 PUFFS/8.5 GM MDI IH SCH ×5 (05:56→20:34)
[2017-11-10] MEDS: busPIRone 5 MG TAB PO SCH ×3 (09:46→21:25)
[2017-11-10] MEDS: ENOXAPARIN 40 MG/0.4 ML SYR SC SCH (09:46)
[2017-11-10] MEDS: LORazepam 2 MG/ML INJ IVP PRN ×2 (10:00→18:28)
--- NOTE | 2017-11-10 13:46 | HOSPPROG ---
Hospitalist Progress Note Assessment/Plan: A 72-year-old admitted with vertigo, nausea and severe anxiety. Evaluation has elicited other medical issues including C5-6 stenosis and porcelain gallbladder. # 2 months symptomatic of flushing vertigo vomiting diarrhea. Unclear etiology , this could be exacerbated by underlying anxiety. She is currently being evaluated for possible carcinoid syndrome as well as mastocytosis with a 24 hr urine which has been completed. Today she feels okay she denies any significant symptoms of flushing and is more concerned about her asthma * Await 24 hr urine results, can likely follow up with her primary care provider for these * Supportive care, trial of Benadryl to see if this helps will transition to hydroxyzine at discharge given her anxiety * If her 24 hr urines are unremarkable I suspect these symptoms could be related to her severe stenosis and anxiety. # C5-C6 stenosis, possibly exacerbating her vertigo, hand weakness and hyperreflexia * Appreciate neurosurgical evaluation * Follow up with as outpatient for C5-C6 fusion # porcelain gallbladder: Follow up with Dr. Corrigan as outpatient for eventually gallbladder removal. # anxiety: Patient states it has started on October 30. * Continue BuSpar * Give her hydroxyzine on discharge # reactive airways disease, followed by [facility]. Typically takes albuterol of Heliox for years. She has Heliox at home. * Prescribed albuterol with Heliox as needed here while she is in the hospital Subjective: Patient new to me and chart reviewed. Looks calm. Feels like the Heliox would help her symptoms as she has used this at home. Currently no flushing no rash. She does complain of anxiety and is asking about taking home some benzodiazepine Objective: Vital Signs Temp Pulse Resp BP Pulse Ox 36.4 C 83 16 147/87 H 97 11/10/17 11:30 11/10/17 11:30 11/10/17 11:30 11/10/17 11:30 11/10/17 11:30 Laboratory Results 11/08/17 04:05 11/08/17 04:05 11/09/17 11/10/17 11/11/17 05:59 05:59 05:59 Intake Total 2800 Output Total 900 1000 Balance -900 1800 - Physical Exam Constitutional: no apparent distress, appears nourished Eyes: PERRL, anicteric sclera, EOMI Ears, Nose, Mouth, Throat: moist mucous membranes, hearing normal Cardiovascular: regular rate and rhythym Respiratory: no respiratory distress, reduced air movement Gastrointestinal: normoactive bowel sounds, soft, non-tender abdomen Genitourinary: no bladder fullness Skin: warm Neurologic: AAOx3 Psychiatric: interacting appropriately ICD10 Worksheet Patient Problems: Problems Problem Status Onset Asthma Acute Asthma exacerbation Acute Asthma with exacerbation Acute Vertigo Acute Dehydration Acute
[2017-11-10] MEDS: ALBUTEROL 3 ML DEYVIAL IH PRN ×2 (14:46→18:15)
[2017-11-11] MEDS: LORazepam 2 MG/ML INJ IVP PRN (02:12)
[2017-11-11] MEDS: ALBUTEROL HFA 200 PUFFS/8.5 GM MDI IH SCH ×2 (05:01→10:17)
[2017-11-11 08:47] VITALS: BP 139/84; TEMP 98.1
[2017-11-11] MEDS: ENOXAPARIN 40 MG/0.4 ML SYR SC SCH (08:50)
[2017-11-11] MEDS: busPIRone 5 MG TAB PO SCH (08:50)
--- NOTE | 2017-11-11 09:51 | GDS ---
[f rep st] DISCHARGE SUMMARY DIAGNOSIS: 1. Dizziness, vertigo for the last several months, unclear etiology, although she does have a C5-C6 stenosis which is severe and may be contributing to her symptoms. Neurosurgery saw her during this a dmission and wished to follow up with her as an outpatient with Dr. Todd for fusion. 2. Flushing, anxiety, nausea, diarrhea, unclear etiology. Her symptoms are much improved, although it is unclear if this is purely related to anxiety or a more significant diagnosis, like carcinoid or mastocytosis. She has a 24-hour urine for 5-HIAA and 24-hour urine for histamine pending at the qian e of discharge. Recommend follow up with her Primary Care and referral to Dr. Rakel Ramey if eithe r of these are concerning. 3. Porcelain gallbladder noted on imaging. Follow up with Dr. Corrigan as an outpatient, who saw her in the hospital, or other surgeon for possible gallbladder removal. 4. Anxiety, worsening since 10/30, started on BuSpar and hydroxyzine as needed in the hospital. May need further Behavior Health followup if this is not improved. 5. Reactive airways disease, followed by [facility] on albuterol and Heliox. Does n ot tolerate inhaled steroids. PROCEDURES PERFORMED: 1. Head and neck CT angiogram, mild calcified plaque of the carotid bulb bilaterally without flow-li miting stenosis. No evidence of stenosis involving the vertebral system. 2. Cervical spine MRI, C3-C4 and C5-C6. Moderate central canal stenosis with cord compression and d eformity, and moderate to severe bilateral neural foraminal stenosis secondary to moderate DJD. No c ord edema. Mild old compression deformity of the T2. CONSULTATIONS: 1. Neurology, Dr. Phi Garcia. 2. Neurosurgery, Dr. Neo Todd. 3. General Surgery, Shekhar Amador. HOSPITAL COURSE: Ms. Boothe is a 72-year-old with a history significant for asthma. She c omes in with a constellation of symptoms going on for 4 months. These include vertigo, dizziness ass ociated with some flushing, nausea, diarrhea. She had a thorough evaluation in the hospital includin g the above imaging procedures. She had a number of issues noted including C5-C6 stenosis, porcelain gallbladder, and needs further followup for those. She was started on scheduled Benadryl as well as BuSpar during her hospitalization and had some improvement in her anxiety as well as her symptoms, a lthough I did not personally witness the symptoms of flushing rash while I was seeing her. At the ti me of discharge, she was no longer orthostatic. She was feeling pretty well and I think the rest of her evaluation can be done as an outpatient. She will need significant followup as noted above. CONDITION ON DISCHARGE: She is afebrile, heart rate 82, blood pressure 139/84, respirations 16, she is 93% on room air. She is not orthostatic. She is alert and oriented. Heart is regular. Lungs ar e clear. She feels well enough to go home with no specific complaints this morning. DISCHARGE MEDICATIONS: Please see discharge medication form. Of note, she was started on BuSpar as well as hydroxyzine as needed for anxiety. She was given some Benadryl in the hospital for possible mastocytosis. It is unclear whether this helped or not. FOLLOWUP INSTRUCTIONS: Outlined above. She needs to follow up with her primary care provider celia w mk to follow up on her 24-hour urines that are pending. Follow up with Dr. Todd for her ce rvical spine stenosis. Follow up with Dr. Corrigan for porcelain gallbladder. Follow up with Ervin cortes per recommendations by Dr. Phi Garcia. Total time spent with patient on discharge and coordination of care is 35 minutes. /[id number]/MODL
[2017-11-11] MEDS: ALBUTEROL 3 ML DEYVIAL IH PRN (10:02)
[2017-11-11 10:16] VITALS: PULSE 78; RESP 12; O2SAT 95
--- NOTE | 2017-11-11 16:56 | ASDISCHSUM ---
Discharge Information Plan Status:Home with No Needs Medically Cleared to Leave:11/10/2017 Discharge Date:11/11/2017 12:42 PM CM D/C Disposition:Home, Routine, Self-Care ADT D/C Disposition:Home, Routine, Self-Care Projected Discharge Date:11/11/2017 12:00 AM Transportation at D/C:Family Discharge Delay Reason: Follow-Up Date:11/11/2017 12:00 AM Discharge Slot: Final Diagnosis:Vertigo, dehydration Placement Information Patient Contact Information Contact Name:TALHA Relationship: Address:[address] [place] [address] [place] City:[place] Alternate Phone: State/Zip Code:[place] [address] Email: Financial Information Financial Class: Primary Plan Desc:MEDICARE INPATIENT Primary Plan Number:[id number] Secondary Plan Desc:[facility] Secondary Plan Number:[id number] Assessment Information [facility] CM Progress Note CM Note CM Note Notes: Patient admitted for dizziness. She says she's suffered from "mild vertigo" for years and is having worsening symptoms. Head/neck CT and MRI ordered by neurology. Patient is normally independent and lives with her . I do not anticipate that she will have any discharge needs, but Case Management is available if that changes. Date Signed: 11/07/2017 04:28 PM Electronically Signed By:Kinsey Way RN [facility] CM Progress Note CM Note CM Note Notes: Anticipate pt will d/c when medically stable PT/OT have cleared pt. Pt will follow up with neurosurgery on an outpatient basis for the stenosis. CM available for changes/needs. Date Signed: 11/09/2017 04:26 PM Electronically Signed By:IVETTE Lozano Case Management Discharge Plan Note Case Management Discharge Discharge Order Complete? Answers: Yes Patient to Obtain Answers: via Family Medications Transportation Arranged Answers: Family/Friends Transport will Pick (Date 11/11/2017 12:00 AM & Time) Family Notified Answers: Yes Notes: Family to transport Discharge Comments Notes: Patient has been discharged home and to f/u w/Dr. Catherine, Dr. Corrigan, her PCP and an meal temperer. Date Signed: 11/11/2017 04:56 PM Electronically Signed By:Concepcion Coleman LCSW Intervention Information
== END 2017-11-11 12:42 | disposition home or self-care (01) | DRG 149 ==
LOC: F1N 19:46 → F3N 11-08 16:47
PROVIDERS: ADMIT Internal Medicine; ATTEND Internal Medicine
DX: R42 Dizziness and giddiness (principal); M48.02 Spinal stenosis, cervical region; R19.7 Diarrhea, unspecified; F41.9 Anxiety disorder, unspecified; R23.2 Flushing; K82.8 Other specified diseases of gallbladder; J45.909 Unspecified asthma, uncomplicated; E03.9 Hypothyroidism, unspecified; E86.0 Dehydration; K80.20 Calculus of gallbladder without cholecystitis without obstruction; Z23 Encounter for immunization
CPT/HCPCS: 82693-90; 83497-90; 83520-90; 97161-GP; 97165-GO; G0008; G0009; G0480; G8978-GP-CI; G8979-GP-CI; G8980-GP-CI; G8987-GO-CI; G8988-GO-CI; G8989-GO-CI; J0360; J1200; J1650; J2060; J2405; J7613; Q9967

== ENCOUNTER 2017-11-12 17:32 | Emergency (ER) | payer OTHER ==
--- NOTE | 2017-11-12 17:49 | EDPHY ---
H & P Stated Complaint: resp distress HPI/ROS: CHIEF COMPLAINT: Anxiety HISTORY OF PRESENT ILLNESS: The patient is a 72-year-old female with a history of anxiety, asthma and chronic vertigo who was admitted a few days ago for the vertigo. Her workup was negative other than a mild C5-C6 stenosis for which she is following up with Neurosurgery. She was essentially treated with BuSpar on hydroxyzine for her anxiety which included flushing, nausea and diarrhea of unclear etiology. She improved significantly. She takes albuterol and Heliox at home. She does not have a pulse oximeter at home. She called 911 this evening because she states that she has had continued shortness of breath since she was in the hospital. It is not worsened recently. She has not had any recent fevers or cough or pneumonia type symptoms. She states that she feels the same as always and is frustrated because we never believe her. When paramedics arrived she was saturating 98% and had no wheezing on exam. She tells me she has used her inhaler 10 times today. REVIEW OF SYSTEMS: Constitutional: denies: chills, fever, recent illness, recent injury EENTM: denies: blurred vision, double vision, nose congestion Respiratory: See HPI Cardiac: denies: chest pain, irregular heart rate, lightheadedness, palpitations Gastrointestinal/Abdominal: denies: abdominal pain, diarrhea, nausea, vomiting, blood streaked stools Genitourinary: denies: dysuria, frequency, hematuria, pain Musculoskeletal: denies: joint pain, muscle pain Skin: denies: lesions, rash, jaundice, bruising Neurological: denies: headache, numbness, paresthesia, tingling, dizziness, weakness Hematologic/Lymphatic: denies: blood clots, easy bleeding, easy bruising Immunologic/allergic: denies: HIV/AIDS, transplant EXAM: GENERAL: Well-appearing, well-nourished and in no acute distress. HEAD: Atraumatic, normocephalic. EYES: Pupils equal round and reactive to light, extraocular movements intact, sclera anicteric, conjunctiva are normal. ENT: TMs normal, nares patent, oropharynx clear without exudates. Moist mucous membranes. NECK: Normal range of motion, supple without lymphadenopathy or JVD. LUNGS: Breath sounds clear to auscultation bilaterally and equal. No wheezes rales or rhonchi. HEART: Regular rate and rhythm without murmurs, rubs or gallops. ABDOMEN: Soft, nontender, normoactive bowel sounds. No guarding, no rebound. No masses appreciated. BACK: No CVA tenderness, no spinal tenderness, step-offs or deformities EXTREMITIES: Normal range of motion, no pitting or edema. No clubbing or cyanosis. NEUROLOGICAL: Cranial nerves II through XII grossly intact. Normal speech, normal gait. 5/5 strength, normal movement in all extremities, normal sensation PSYCH: Normal mood, normal affect. SKIN: Warm, dry, normal turgor, no visible rashes or lesions. Source: Patient Exam Limitations: No limitations - Medical/Surgical History Hx Asthma: Yes Hx Chronic Respiratory Disease: No Hx Diabetes: No Hx Cardiac Disease: No Hx Renal Disease: No Hx Cirrhosis: No Hx Alcoholism: No Hx HIV/AIDS: No Hx Splenectomy or Spleen Trauma: No Other PMH: asthma, hypothyroid, dizziness vertigo, chronic sinusitis - Family History Significant Family History: No pertinent family hx - Social History Smoking Status: Never smoked Alcohol Use: Sober Drug Use: None Constitutional: Initial Vital Signs Heart Rate 99 11/12/17 17:35 Respiratory Rate 18 11/12/17 17:35 Blood Pressure 153/95 H 11/12/17 17:35 O2 Sat (%) 95 11/12/17 17:35 O2 Delivery Mode Room Air Allergies/Adverse Reactions: No Known Allergies Allergy (Verified 11/06/17 17:03) Home Medications: Medication Instructions Recorded "Specially Compounded T3-T4 1 ea PO AD 10/15/17 Albuterol Hfa Anes Only [Proair 2 puffs IH QID 10/15/17 Hfa Icu (*)] Herbals/Supplements -Info Only 1 ea PO DAILY 11/06/17 busPIRone [Buspar (*)] 5 mg PO TID #90 tab 11/11/17 diphenhydrAMINE [Benadryl 25 MG 25 mg PO Q6 PRN #1 tab 11/11/17 (*)] hydrOXYzine HCL [hydrOXYzine HCL 25 mg PO Q6 #50 tab 11/11/17 (RX)] LORazepam [Ativan 1 mg (RX)] 1 mg PO Q6-8PRN PRN #10 tab 11/12/17 predniSONE 60 mg PO DAILY #15 tab 11/12/17 Medical Decision Making - Diagnostics EKG Interpretation: An EKG obtained and was read and documented in trace view. Please see trace view for full reading and report. Sinus rhythm, no acute ischemic changes ED Course/Re-evaluation: 6:40 p.m. the patient remains comfortable in saturating 98% on room air. She continually feels short of breath however and repeatedly turns on her home Heliox. She is taking for he the FX treatment here. Will give her 1 with the albuterol and start her on oral steroids. She has some wheezing on repeat exam. I do not think that she will require admission to the hospital. She is also asking for Ativan for her anxiety. 7:45 p.m. the patient is doing very well. She states that she feels extremely better after a Faisal ex neb. He is saturating 97% on room air. I will prepare paperwork for discharge. Differential Diagnosis: Partial list of the Differential diagnosis considered include but were not limited to; anxiety, COPD exacerbation, bronchitis, pneumonia and although unlikely based on the history and physical exam, I also considered PE, dissection, acute coronary disease, pneumothorax, acute coronary disease. I discussed these differential diagnoses and the plan with the patient as well as the usual and expected course. The patient understands that the diagnosis is provisional and that in medicine we are not always correct and that further workup is often warranted. Usual and customary warnings were given. All of the patient's questions were answered. The patient was instructed to return to the emergency department should the symptoms at all worsen or return, otherwise to followup with the physician as we discussed. - Data Points Laboratory Results: Laboratory Results 11/12/17 19:00 11/12/17 19:00 Medications Given: Discontinued Medications Albuterol (Proventil Neb) 3 ml IH EDNOW ONE Stop: 11/12/17 19:27 Last Admin: 11/12/17 19:36 Dose: 3 ml Lorazepam (Ativan Injection) 1 mg IVP EDNOW ONE Stop: 11/12/17 18:43 Last Admin: 11/12/17 18:50 Dose: Not Given Lorazepam (Ativan) 1 mg PO EDNOW ONE Stop: 11/12/17 18:45 Last Admin: 11/12/17 18:48 Dose: 1 mg Prednisone (Prednisone) 60 mg PO EDNOW ONE Stop: 11/12/17 18:45 Last Admin: 11/12/17 18:47 Dose: 60 mg Departure - Departure Disposition: Home, Routine, Self-Care Clinical Impression: Anxiety about health Asthma exacerbation Qualifiers: Asthma severity: moderate Asthma persistence: unspecified Qualified Code(s): J45.901 - Unspecified asthma with (acute) exacerbation Condition: Fair Instructions: Asthma (ED), Anxiety (ED) Referrals: Patient,NotPresent [Unknown] - As per Instructions Prescriptions: LORazepam [Ativan 1 mg (RX)] 1 mg PO Q6-8PRN PRN #10 tab PRN Reason: *Anxiety/Agitation/Insomnia predniSONE 60 mg PO DAILY #15 tab
[2017-11-12] MEDS ORDERED: LORazepam 2 MG/ML INJ IVP ONE (18:42)
[2017-11-12] MEDS ORDERED: predniSONE 20 MG TAB PO ONE (18:44)
[2017-11-12] MEDS ORDERED: LORazepam 1 MG TAB PO ONE (18:44)
--- NOTE | 2017-11-12 19:08 | CPEKG ---
Heart Rate: 90 RR Interval: 667 P-R Interval: 140 QRSD Interval: 78 QT Interval: 372 QTC Interval: 455 P [place]: 13 QRS [place]: -32 T Wave [place]: 15 EKG Severity - BORDERLINE ECG - EKG Impression: SINUS RHYTHM EKG Impression: LEFT AXIS DEVIATION EKG Impression: BORDERLINE R WAVE PROGRESSION, ANTERIOR LEADS EKG Impression: Unchanged from previous Electronically Signed By: Phi Thornton 12-Nov-2017 19:14:30
[2017-11-12 19:09] LABS: PLATELET COUNT 319 10^3/uL (150-400)
[2017-11-12] MEDS ORDERED: ALBUTEROL 3 ML DEYVIAL IH ONE (19:26)
[2017-11-12] MEDS ORDERED: ALBUTEROL 3 ML DEYVIAL ONE (19:26)
[2017-11-12 20:07] VITALS: BP 143/94; PULSE 92; RESP 16; TEMP 97.9; O2SAT 95
== END 2017-11-12 20:05 | disposition home or self-care (01) ==
LOC: EDUNIT#
DX: F41.9 Anxiety disorder, unspecified (principal); J45.901 Unspecified asthma with (acute) exacerbation
CPT/HCPCS: 71046; 93005; 99285; J7512; J7613

== ENCOUNTER 2018-01-03 19:10 | Inpatient (IN) | payer OTHER ==
[2018-01-03] MEDS ORDERED: MAGNESIUM SULF 2 GM/WATER 50 ML IV ONE (19:16)
[2018-01-03] MEDS ORDERED: NS 500 ML IV ONE (19:16)
[2018-01-03] MEDS ORDERED: ALBUTEROL 3 ML DEYVIAL IH ONE (19:16)
--- NOTE | 2018-01-03 19:18 | EDPHY ---
H & P Time Seen by Provider: 01/03/18 19:15 HPI/ROS: CHIEF COMPLAINT: Respiratory distress, asthma Limitations: severe dyspnea HISTORY OF PRESENT ILLNESS: The patient is an 83 y/o female with a history of asthma arriving emergently via EMS with severe SOB. She has had a cough recently and is currently taking amoxicillin for this. She developed worsening dyspnea today and has been using multiple nebulizer treatments for the last 7 hours without alleviation. On EMS arrival, she had severe respiratory distress, minimal air exchange and faint wheezing. They administered 3 duo nebs, epinephrine, Zofran, and Solumedrol IV en route. Per EMS, she is much better now. She has a h/o severe asthma; she has never required intubation for asthma, but has had severe asthma attacks previously that were treated with Heliox and continuous nebs. REVIEW OF SYSTEMS: unable to obtain - Medical/Surgical History PMH: PMH: 1. Asthma 2. Vertigo 3. Hypothyroidism Prior medical records reviewed including admission 11/06/17 for vertigo. - Social History Additional Social History: Retired. Lives in [place]. . Coater [place]ate: Dr. Kashmir Moncada - Physical Exam Exam: General Appearance: Alert, sitting up, severe respiratory distress Eyes: Pupils equal and round, no conjunctival pallor or injection ENT, Mouth: Mucous membranes moist Neck: Normal inspection Respiratory: 1-2 word dyspnea, tachypneic, inspiratory and expiratory wheezing throughout, increased work of breathing Cardiovascular: Regular rate and rhythm Gastrointestinal: Abdomen is soft and non- tender Neurological: Alert, mentating normally, nonfocal Skin: Warm and dry, no rash Extremities: Nontender, no pedal edema Constitutional: Initial Vital Signs Temperature (C) 35.9 C L 01/03/18 19:12 Heart Rate 104 H 01/03/18 19:12 Blood Pressure 179/88 H 01/03/18 19:12 O2 Sat (%) 97 01/03/18 19:12 O2 Delivery Mode Nasal Cannula,Heliox,Oxymask O2 (L/minute) 6 Allergies/Adverse Reactions: No Known Allergies Allergy (Verified 01/03/18 20:12) Home Medications: Medication Instructions Recorded Albuterol Hfa Anes Only [Proair 2 puffs IH QID 10/15/17 Hfa Icu (*)] Herbals/Supplements -Info Only 1 ea PO DAILY 11/06/17 diphenhydrAMINE [Benadryl 25 MG 25 mg PO Q6 PRN #1 tab 11/11/17 (*)] LORazepam [Ativan 1 mg (RX)] 1 mg PO Q6-8PRN PRN #10 tab 11/12/17 busPIRone [Buspar (*)] 5 mg PO TID PRN 01/03/18 hydrOXYzine HCL [hydrOXYzine HCL 25 mg PO Q6 PRN 01/03/18 (RX)] Medical Decision Making - Diagnostics EKG Interpretation: EKG interpreted by a me reveals sinus tachycardia, rate 103, poor R-wave progression, no ST or T segment changes. Imaging Results: Chest X-Ray 01/03/18 19:14 Impression: Hyperinflation suggesting COPD/emphysema but no focal consolidation. Imaging: I viewed and interpreted images myself ED Course/Re-evaluation: 1909: This pt presents in severe respiratory distress. Chest: poor air exchange , few expir wheezes. Met EMS upon arrival and took report. RT at bedside. O2 sat 100%, RR 50, continuous albuterol neb initiated. Mag sulfate 2gms IV given. RT getting heliox. I remained at bedside until pt visibly improved with rx. 1924: improved, less anxious, better air exchange and decreased resp rate. CXR : hyperinflated, no infiltrate. Clinical presentation c/w asthma exacerbation, no evidence of pneumonia. 1942: Reassessed patient. On heliox. Respiratory effort has improved notably. She is almost able to speak in full sentences and appears more relaxed, joking. Tachypnea has decreased to approximately 30. She has improved air exchange and decreased wheezing on auscultation. 1999: continues to improve, on O2 by nasal cannula, improved air exchange, chest -increased wheezing, better air exchange Consulted with hospitalist service. Dr. Rahman accepts admission for asthma exacerbation. Will admit to stepdown. Critical care time 40 minutes by me exclusive of unbundled procedures. Time spent in initial H/P, multiple reassessments, ordering and interpretation of tests, consultation. Organ at risk: lungs, all Differential Diagnosis: Differential diagnosis includes though it is not limited to pneumonia, pneumothorax, pulmonary embolism, aortic dissection, pericarditis, acute coronary syndrome. - Data Points Laboratory Results: Laboratory Results 01/03/18 19:15 01/03/18 19:15 Medications Given: Albuterol (Proventil Neb) 3 ml IH Q2HRS PRN PRN Reason: Short of Breath/Dyspnea Stop: 07/02/18 19:51 Last Admin: 01/04/18 00:02 Dose: 3 ml Albuterol/Ipratropium (Duoneb) 3 ml IH QID [facility] Stop: 07/02/18 20:59 Last Admin: 01/06/18 15:36 Dose: 3 ml Azithromycin (Zithromax) 500 mg PO DAILY [facility] PRN Reason: Protocol Stop: 01/07/18 09:01 Last Admin: 01/06/18 09:27 Dose: 500 mg Benzonatate (Tessalon Pearles) 100 mg PO TID PRN PRN Reason: Cough, Mild Stop: 07/03/18 00:06 Last Admin: 01/04/18 22:27 Dose: 100 mg Budesonide (Pulmicort 0.25mg/2ml Neb) 0.5 mg IH BID [facility] Stop: 07/03/18 00:06 Last Admin: 01/06/18 11:24 Dose: 0.5 mg Buspirone HCl (Buspar) 5 mg PO TID PRN PRN Reason: Anxiety Stop: 07/02/18 21:25 Last Admin: 01/05/18 22:37 Dose: 5 mg Calcium Carbonate (Tums) 500 mg PO TID PRN PRN Reason: Indigestion Stop: 07/04/18 21:31 Last Admin: 01/05/18 22:38 Dose: 500 mg Enoxaparin Sodium (Lovenox) 40 mg SC DAILY [facility] Stop: 07/03/18 08:59 Last Admin: 01/06/18 09:26 Dose: 40 mg Guaifenesin/Codeine Phosphate (Robitussin Ac) 10 ml PO Q6HRS PRN PRN Reason: Cough, Moderate Stop: 07/03/18 00:07 Last Admin: 01/05/18 23:19 Dose: 10 ml Lorazepam (Ativan) 0.5 - 1 mg PO Q4HRS PRN PRN Reason: Anxiety, Able to Take PO Stop: 07/02/18 21:23 Last Admin: 01/06/18 00:07 Dose: 1 mg Melatonin (Melatonin) 3 mg PO HS [facility] Stop: 07/04/18 20:59 Last Admin: 01/05/18 22:37 Dose: 3 mg Prednisone (Prednisone) 40 mg PO BIDMEAL [place] Stop: 07/04/18 17:59 Last Admin: 01/06/18 18:25 Dose: 40 mg Zolpidem Tartrate (Ambien) 5 mg PO HS PRN PRN Reason: Sleep/Insomnia Stop: 07/04/18 09:02 Last Admin: 01/06/18 01:58 Dose: 5 mg Discontinued Medications Albuterol (Proventil Neb) 9 ml IH EDNOW ONE Stop: 01/03/18 19:17 Last Admin: 01/03/18 19:28 Dose: 9 ml Sodium Chloride (Ns) 500 mls @ 1,000 mls/hr IV EDNOW ONE PRN Reason: Protocol Stop: 01/03/18 19:45 Last Admin: 01/03/18 19:22 Dose: 500 mls Magnesium Sulfate (Magnesium Sulf 2 Gm (Premix)) 50 mls @ 50 mls/hr IV EDNOW ONE Stop: 01/03/18 20:15 Last Admin: 01/03/18 19:22 Dose: 50 mls Methylprednisolone Sodium (Succinate 500 mg/ Dextrose) 100 mls @ 100 mls/hr IV EDNOW ONE Stop: 01/03/18 20:52 Last Admin: 01/03/18 20:56 Dose: Not Given Methylprednisolone Sodium Succinate (Solu-Medrol) 50 mg IVP Q8HRS [facility] Stop: 07/02/18 21:59 Last Admin: 01/05/18 05:52 Dose: 50 mg Departure - Departure Disposition: [facility] Clinical Impression: Asthma exacerbation Qualifiers: Asthma severity: severe Asthma persistence: unspecified Qualified Code(s): J45.901 - Unspecified asthma with (acute) exacerbation Condition: Serious Report Scribed for: Danika Matamoros Report Scribed by: Malka Alvarez Date of Report: 01/03/18 Time of Report: 19:20 Physician Review and Approval Statement: 01/03/18 19:20 Portions of this note were transcribed by a ophthalmic medical technician. I personally performed a history, physical exam, medical decision making, and confirmed accuracy of information the transcribed note.
--- NOTE | 2018-01-03 19:23 | CPEKG ---
Heart Rate: 104 RR Interval: 577 P-R Interval: 124 QRSD Interval: 110 QT Interval: 376 QTC Interval: 495 P [place]: 99 QRS [place]: -9 T Wave [place]: 27 EKG Severity - ABNORMAL ECG - EKG Impression: SINUS TACHYCARDIA EKG Impression: BORDERLINE R WAVE PROGRESSION, ANTERIOR LEADS EKG Impression: artifact Electronically Signed By: Danika Matamoros 03-Jan-2018 20:49:30
[2018-01-03 19:38] LABS: PLATELET COUNT 330 10^3/uL (150-400)
[2018-01-03] MEDS ORDERED: ONDANSETRON DISINTEGRATING 4 MG TAB PO PRN (19:52)
[2018-01-03] MEDS ORDERED: ALBUTEROL 3 ML DEYVIAL IH PRN (19:52)
[2018-01-03] MEDS ORDERED: ACETAMINOPHEN 325 MG TAB PO PRN (19:52)
[2018-01-03] MEDS ORDERED: ONDANSETRON 4 MG/2 ML VIAL IVP PRN (19:52)
[2018-01-03] MEDS ORDERED: methylPREDNISolone SOD SUCC 500 MG in D5W 100 ML IV ONE (19:53)
[2018-01-03] MEDS ORDERED: hydrOXYzine HCL 25 MG TAB PO PRN (21:26)
[2018-01-03] MEDS ORDERED: diphenhydrAMINE 25 MG CAP PO PRN (21:26)
[2018-01-03] MEDS: LORazepam 1 MG TAB PO PRN (21:38)
[2018-01-03] MEDS: methylPREDNISolone SOD SUCC 125 MG/2 ML VIAL IVP SCH (21:51)
[2018-01-03] MEDS: IPRATROPIUM/ALBUTEROL 3 ML DEYVIAL IH SCH (21:53)
[2018-01-03] MEDS: AZITHROMYCIN 250 MG TAB PO SCH (21:58)
[2018-01-03] MEDS ORDERED: methylPREDNISolone SOD SUCC 50 MG in D5W 100 ML IV SCH (22:00)
--- NOTE | 2018-01-03 22:25 | GHP ---
[f rep st] HISTORY AND PHYSICAL DATE OF ADMISSION: 01/03/2018 CHIEF COMPLAINT: Shortness of breath. HISTORY OF PRESENT ILLNESS: This is a 72-year-old female with known history of asthma, managed in [facility] outpatient setting by Dr. Kashmir Moncada, who presents with sudden onset, severe shortness of breath. Patient reports being started 3 days ago on antibiotics by Dr. Moncada for increasing shortness of br eath and cough. Patient reports initiating those antibiotics and having improvement in her symptoms. Denies any subjective fevers or chills. Denies any worsening of her cough. Denies any known sick contacts. Denies any changes in her bowel habits, dysuria, hematuria, lower extremity edema, any new rashes. Patient awoke this morning with progressive shortness of breath, which she treated on her o wn at home with inhaled medications and Heliox, had improvement in her symptoms, enough that she was able to lie down and take a nap. When she awoke from her nap this afternoon, she had rapidly-progres sive shortness of breath requiring calling EMS and being brought to the emergency department for eval uation. Patient was and given 150 mg Solu-Medrol en route, initiated on Heliox and continuous nebs, and has had marked improvement in her symptoms. During my evaluation, patient is incredibly thankful for the ability to breathe again, per her report, she is coughing during the examination and reports that is the cough she has been experiencing for the last few days. She is feeling a bit anxious aft er receiving beta agonist and IV steroids. PAST MEDICAL HISTORY: 1. Asthma. 2. Hypothyroidism. SOCIAL HISTORY: Negative for tobacco, alcohol or illicit drugs. FAMILY HISTORY: Both parents are . ADVANCED DIRECTIVES: The patient wishes to be do not resuscitate. Her would be her medical decision maker. REVIEW OF SYSTEMS: A 10-point review of systems is negative, with the exception of that reported in the HPI. PHYSICAL EXAMINATION: VITAL SIGNS: Blood pressure 130/57, heart rate 93, respiratory rate 24, 93% o n 6 L, Heliox mask. GENERAL: This is an elderly female in mild respiratory distress. HEENT: Exam is notable for dry mucous membranes. Eye exam is negative for any icterus. CARDIAC: Patient is tac hycardic on my examination, but regular. PULMONARY: She is diffusely wheezy on end expiration. GAS TROINTESTINAL: Positive bowel sounds. ABDOMEN: Soft and nontender. MUSCULOSKELETAL: Negative for any lower extremity edema. SKIN: Negative for any rashes. NEUROLOGIC: She is alert and oriented x3. PSYCHIATRIC: She is pleasant and cooperative on interview and examination. DATA: White count 13.1, hematocrit 44.0, platelets of 330. Sodium of 146, creatinine of 0.8, tropon in less than 0.012. Chest x-ray, which I personally reviewed and interpreted, shows no acute infiltrates or edema. Radio logy comments on hyperinflation. ASSESSMENT AND PLAN: This is a 72-year-old female presenting with acute asthma exacerbation. 1. Acute asthma exacerbation. Patient has had prompt response to the initial treatment provided en route by EMS as well as in the emergency department. We will continue IV steroids in the morning, al though I suspect she may be able to be transitioned to oral prednisone later in the day. We will con tinue q.2 albuterol inhaled as well as scheduled DuoNebs. We will send a respiratory viral pathogen PCR to rule out a possible viral trigger. Once medications are reconciled, can continue whichever an tibiotic Dr. Moncada had initiated in the outpatient setting. 2. Hypothyroidism. We will continue her outpatient medications, once reconciled. 3. Anxiety. Patient historically known to feel anxious in the hospital when receiving steroids. Wi ll use p.r.n. Ativan as needed as well as previously-successful either hydroxyzine or Benadryl, if ne eded. PROPHYLAXIS: Lovenox. DIET: Regular when she is comfortable enough to take p.o. DISPOSITION: I expect greater than 2 midnights, as the patient is presenting with severe acute asthm a exacerbation requiring close respiratory monitoring, Heliox, and high-level respiratory support. I have discussed the case with the emergency room physician, and patient will be triaged to the [facility] unit for care and monitoring. /[id number]/MODL
[2018-01-04] MEDS ORDERED: BENZONATATE 100 MG CAP PO PRN (00:07)
[2018-01-04] MEDS: BUDESONIDE 0.25MG/2ML DEYVIAL (5/POUCH) IH SCH ×3 (00:23→21:00)
[2018-01-04] MEDS: IPRATROPIUM/ALBUTEROL 3 ML DEYVIAL IH SCH ×4 (05:16→21:00)
[2018-01-04] MEDS: methylPREDNISolone SOD SUCC 125 MG/2 ML VIAL IVP SCH ×3 (05:33→21:32)
[2018-01-04 06:54] LABS: PLATELET COUNT 240 10^3/uL (150-400)
[2018-01-04] MEDS: ENOXAPARIN 40 MG/0.4 ML SYR SC SCH (09:00)
[2018-01-04] MEDS ORDERED: Herbals/Supplements -Info Only PO SCH (09:00)
[2018-01-04] MEDS: AZITHROMYCIN 250 MG TAB PO SCH (09:01)
--- NOTE | 2018-01-04 09:03 | HOSPPROG ---
Hospitalist Progress Note Assessment/Plan: #Acute asthma exacerbation -due to viral infection. Cont nebs, Azithro, Solumderol. Discussed with Dr. Moncada who knows patient well #Rhino/enterovirus URI -supportive care, cough suppressants #Leukocytosis: resolved #Hypovolemic hypernatremia: mild #Acute hypoxic resp failure: due to above #Diet: reg #DVT ppx: lovenox #Disp: warrants inpatient admission for hypoxia, requires oxygen, IV steroids, nebs. Cont ICU care Subjective: SOB this morning Objective: Vital Signs Temp Pulse Resp BP Pulse Ox 36.6 C 70 23 H 134/67 H 98 01/04/18 08:00 01/04/18 08:00 01/04/18 08:59 01/04/18 08:00 01/04/18 08:59 Microbiology 01/03/18 20:35 Respiratory Panel (PCR) - Final Nasal, Sinus - Unspecified Human Rhinovirus/Enterovirus Laboratory Results 01/04/18 06:45 01/03/18 01/04/18 01/05/18 05:59 05:59 05:59 Intake Total 400 Balance 400 - Physical Exam Constitutional: no apparent distress, other (tired -appearing) Eyes: PERRL Ears, Nose, Mouth, Throat: moist mucous membranes Cardiovascular: regular rate and rhythym Respiratory: no respiratory distress Gastrointestinal: normoactive bowel sounds, soft, non-tender abdomen Genitourinary: no bladder fullness Skin: warm Musculoskeletal: full muscle strength Neurologic: CN II-XII Intact ICD10 Worksheet Patient Problems: Problems Problem Status Onset Asthma exacerbation Acute Anxiety about health Acute Asthma Acute Asthma with exacerbation Acute Dehydration Acute Vertigo Acute
--- NOTE | 2018-01-04 09:28 | PDMN ---
Medical Necessity Medical necessity: Pt meets IP criteria per MD; est los >2 mn for eval/tx of severe acute asthma exacerbation w/profound dyspnea, tachypnea & sinus tachycardia; requiring close monitoring/further workup in SDU w/Heliox therapy at 10L, continuous Albuterol, additional O2 at 6LPM & IV steroids; chest xray suggesting COPD/emphysema, r/o viral infection; hx anxiety; per H&P & order
--- NOTE | 2018-01-04 10:04 | ASMTCMCOM ---
CM Note CM Note Notes: Patient admitted for an acute asthma exacerbation secondary to a viral infection. She is a patient of Dr Moncada in the outpatient setting. Patient lives with her Butch. No therapies have been ordered, and I do not anticipate any d/c needs. Case Management can assist if any arise. Date Signed: 01/04/2018 10:03 AM Electronically Signed By:Kinsey Way RN
--- NOTE | 2018-01-04 13:48 | CPEKG ---
Heart Rate: 103 RR Interval: 583 P-R Interval: 132 QRSD Interval: 80 QT Interval: 360 QTC Interval: 471 P Howard: 81 QRS Howard: 38 T Wave Howard: 51 EKG Severity - OTHERWISE NORMAL ECG - EKG Impression: SINUS TACHYCARDIA Electronically Signed For: Silvino Benoit 04-Jan-2018 13:48:54
[2018-01-04] MEDS: guaiFENesin/CODEINE PHOS 10 ML UDCUP PO PRN ×2 (14:47→19:47)
--- NOTE | 2018-01-04 18:24 | GCON ---
[f rep st] CONSULTATION DATE OF CONSULTATION: 01/04/2018 REASON FOR CONSULTATION: Asthma exacerbation. HISTORY: The patient is a pleasant 72-year-old who is well known to me from the office. I have foll owed her for a number years with asthma. She is on inhaled therapies as well as as needed Heliox at home. She does have a component of anxiety as well, and the use of Heliox has prevented trips to the emergency department. Over the last several days she has had increasing pulmonary congestion and wh eezing. She was started empirically on antibiotic. However, yesterday she had increasing shortness of breath and cough despite using increased inhaled medications and Heliox. She felt she was signifi cantly short of breath and was not recovering, called EMS, and was brought to the emergency departmen t. She was given continuous nebulized treatments and started on Heliox. She was given steroids and antibiotics have been continued. She was admitted to the intensive care unit on step-down status. S he feels that she is doing better, but continues to have cough, wheezing, and chest tightness. She i s on oxygen at 6 L with good saturations. She does not use oxygen at home. PAST MEDICAL HISTORY: Remarkable primarily for her asthma, hypothyroidism, and anxiety. MEDICATIONS: Home medications include: BuSpar p.r.n., Benadryl, hydroxyzine p.r.n., Ativan p.r.n., and albuterol. She has amoxicillin and prednisone at home for exacerbations. She has had pharyngiti s with inhaled therapies in the past, and is no longer using these. SOCIAL HISTORY: . Never smoker. Alcohol denied. FAMILY HISTORY: Noncontributory. REVIEW OF SYSTEMS: A 10-point review of systems is negative. No history of heart disease, thromboem bolic disease. PHYSICAL EXAMINATION: GENERAL: Reveals pleasant woman who is lying relatively comfortably in bed. Oxygen is in place. She has occasional coughing. She is mildly tachypneic at 22. VITAL SIGNS: Blo od pressure is 130/65, heart rate 80 with sinus rhythm on the monitor. On 6 L of oxygen, saturations are 100%. She is afebrile. HEENT: Unremarkable for lymphadenopathy or thyromegaly. There is no j ugular venous distention, no pharyngitis. CHEST: Reveals coarse breath sounds with some scattered e xpiratory wheezes. She is not particularly tight. There are a few rales noted at the bases. Expira tory phase is mildly prolonged. HEART: Regular in rate and rhythm. There are no significant murmur s, no gallops. ABDOMEN: Soft, nontender. Bowel sounds are present. EXTREMITIES: Without edema. There are no cords or tenderness. NEUROLOGIC: Nonfocal. She is oriented x3. She is somewhat anxio us, and appears mildly confused at times. DATABASE: Chest x-ray on admission showed no focal infiltrates consistent with pneumonia. Mild hype rinflation appeared to be present. White blood cell count is 8800, hematocrit 36.4. Platelets are normal. Basic metabolic panel is wit hin normal limits with exception of a mildly elevated glucose at 152. Respiratory viral panel is positive for Rhinovirus/Enterovirus. ASSESSMENT: 1. Chronic obstructive pulmonary disease exacerbation. This is associated with and secondary to rec ent bronchitis. She is improving, and is being treated with Solu-Medrol, bronchodilators, and antibi otics. She is currently on azithromycin. Amoxicillin that she was on as an outpatient is not being continued. Inhaled budesonide is being given, but probably is not needed secondary to intravenous So erick-Medrol. Inhaled steroids in the past have resulted in pharyngitis. I will thus stop this. 2. Anxiety. She does have this and is being treated with Ativan, p.r.n. BuSpar, and hydroxyzine if needed. Her slightly abnormal mental status may be secondary to anxiety or high-dose steroids in the setting of her exacerbation. 3. History of Heliox use. This is unavailable according to our policies in the hospital. If her hasmukh still wants to bring her Heliox in, this can be used on an as needed basis. PLAN AND RECOMMENDATIONS: The patient will be kept in the intensive care unit on step-down status fo r now. Current medications will be continued. Heliox can be brought in as outlined above. Further plans and recommendations will be made based on her progress over the next 12-24 hours. /[id number]/MODL
[2018-01-04] MEDS: LORazepam 1 MG TAB PO PRN (23:36)
[2018-01-05] MEDS: busPIRone 5 MG TAB PO PRN ×2 (02:36→22:37)
[2018-01-05] MEDS: IPRATROPIUM/ALBUTEROL 3 ML DEYVIAL IH SCH ×4 (05:12→21:26)
[2018-01-05] MEDS: methylPREDNISolone SOD SUCC 125 MG/2 ML VIAL IVP SCH (05:52)
[2018-01-05] MEDS: BUDESONIDE 0.25MG/2ML DEYVIAL (5/POUCH) IH SCH ×2 (08:48→21:26)
--- NOTE | 2018-01-05 08:57 | HOSPPROG ---
Hospitalist Progress Note Assessment/Plan: #Acute asthma exacerbation -due to viral infection. -Nebs, Azithro, Solumderol. Discussed with Dr. Moncada who knows patient well #Rhino/enterovirus URI -supportive care, cough suppressants #Leukocytosis: resolved #Hypovolemic hypernatremia: mild #Acute hypoxic resp failure: using less oxygen #Insomnia: melatonin #Diet: reg #DVT ppx: lovenox #Disp: warrants inpatient admission for hypoxia, requires oxygen, IV steroids, nebs. Stable for med-surg Subjective: breathing short with walking still Objective: Vital Signs Temp Pulse Resp BP Pulse Ox 37.1 C 92 17 143/71 H 94 01/05/18 08:00 01/05/18 08:00 01/05/18 08:51 01/05/18 08:00 01/05/18 08:51 Microbiology 01/03/18 20:35 Respiratory Panel (PCR) - Final Nasal, Sinus - Unspecified Human Rhinovirus/Enterovirus Laboratory Results 01/04/18 06:45 01/05/18 05:10 01/04/18 01/05/18 01/06/18 05:59 05:59 06:59 Intake Total 400 1800 Balance 400 1800 - Physical Exam Constitutional: no apparent distress Eyes: PERRL Ears, Nose, Mouth, Throat: moist mucous membranes, hearing normal Cardiovascular: regular rate and rhythym, no murmur, rub, or gallop Respiratory: reduced air movement, expiratory wheeze Gastrointestinal: normoactive bowel sounds, soft, non-tender abdomen Genitourinary: no bladder fullness Skin: warm Musculoskeletal: full muscle strength Neurologic: AAOx3, CN II-XII Intact Psychiatric: anxious ICD10 Worksheet Patient Problems: Problems Problem Status Onset Asthma exacerbation Acute Anxiety about health Acute Asthma Acute Asthma with exacerbation Acute Dehydration Acute Vertigo Acute
--- NOTE | 2018-01-05 09:09 | PDINTPN ---
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 Improving. Anxiety. On usual home medications. High-dose Solu-Medrol may be making this worse. Insomnia. Will add Ambien, melatonin at night. Prophylaxis: On enoxaparin, eating. Metabolic: No issues identified. Glucose is mildly high secondary to steroids Plan: Continue bronchodilator therapies, antibiotics. Discontinue Solu-Medrol and start lower dose prednisone. Ambien and melatonin at night to help with sleep. Continue Cesario ox per discretion of the patient. Can transfer to a medical-surgical bed today. 30 min of critical care time spent directly with the patient. Questions answered, issues discussed. Subjective: Doing better overall. Did not sleep last night. Still with cough, chest tightness and wheezing. Using Heliox intermittently that was brought in from home. Objective: Vital Signs Temp Pulse Resp BP Pulse Ox 37.1 C 92 17 143/71 H 94 01/05/18 08:00 01/05/18 08:00 01/05/18 08:51 01/05/18 08:00 01/05/18 08:51 Microbiology 01/03/18 20:35 Respiratory Panel (PCR) - Final Nasal, Sinus - Unspecified Human Rhinovirus/Enterovirus Laboratory Results 01/04/18 06:45 01/05/18 05:10 01/04/18 01/05/18 01/06/18 05:59 05:59 06:59 Intake Total 400 1800 Balance 400 1800 Physical Exam - Physical Exam General Appearance: alert, no apparent distress EENT: PERRL/EOMI, other (Nasal cannula at 3 L) Neck: normal inspection (No JVD) Respiratory: decreased breath sounds, wheezing, prolonged expiration, No lungs clear, No rhonchi (No pearl rhonchi but central pulmonary congestion is present with cough) Cardiac/Chest: regular rate, rhythm Abdomen: normal bowel sounds, non-tender, soft Extremities: No pedal edema Neuro/Psych: no motor/sensory deficits, No cognition abnormalities ICD10 Worksheet Patient Problems: Problems Problem Status Onset Asthma Acute Asthma exacerbation Acute Asthma with exacerbation Acute Vertigo Acute Dehydration Acute Anxiety about health Acute
[2018-01-05] MEDS: ENOXAPARIN 40 MG/0.4 ML SYR SC SCH (09:46)
[2018-01-05] MEDS: AZITHROMYCIN 250 MG TAB PO SCH (09:46)
[2018-01-05] MEDS: predniSONE 20 MG TAB PO SCH (18:01)
[2018-01-05] MEDS ORDERED: CALCIUM CARBONATE 500 MG CHEWABLE TAB PO PRN (21:32)
[2018-01-05] MEDS: MELATONIN 3 MG TAB PO SCH (22:37)
[2018-01-05] MEDS: guaiFENesin/CODEINE PHOS 10 ML UDCUP PO PRN (23:19)
[2018-01-06] MEDS: LORazepam 1 MG TAB PO PRN ×2 (00:07→22:32)
[2018-01-06] MEDS: ZOLPIDEM TARTRATE 5 MG TAB PO PRN ×2 (01:58→22:32)
[2018-01-06] MEDS: IPRATROPIUM/ALBUTEROL 3 ML DEYVIAL IH SCH ×4 (05:50→21:03)
[2018-01-06] MEDS: ENOXAPARIN 40 MG/0.4 ML SYR SC SCH (09:26)
[2018-01-06] MEDS: predniSONE 20 MG TAB PO SCH ×2 (09:27→18:25)
[2018-01-06] MEDS: AZITHROMYCIN 250 MG TAB PO SCH (09:27)
[2018-01-06] MEDS: BUDESONIDE 0.25MG/2ML DEYVIAL (5/POUCH) IH SCH ×2 (11:24→21:03)
--- NOTE | 2018-01-06 14:45 | HOSPPROG ---
Hospitalist Progress Note Assessment/Plan: #Acute asthma exacerbation -due to viral infection. Improved today. Down to 3L NC -Nebs, Azithro, Solumderol. Discussed with Dr. Moncada who knows patient well #Rhino/enterovirus URI -supportive care, cough suppressants #Leukocytosis: resolved #Hypovolemic hypernatremia: mild #Acute hypoxic resp failure: using less oxygen #Insomnia: melatonin #Diet: reg #DVT ppx: lovenox #Disp: warrants inpatient admission for hypoxia, requires oxygen, IV steroids, nebs. Stable for med-surg. Plan to DC tomorrow if clinically improved Subjective: breathing improved. less SOB with exertion Objective: Vital Signs Temp Pulse Resp BP Pulse Ox 36.7 C 77 16 154/88 H 86 L 01/06/18 12:00 01/06/18 12:00 01/06/18 12:00 01/06/18 12:00 01/06/18 12:48 Laboratory Results 01/04/18 06:45 01/05/18 05:10 01/05/18 01/06/18 01/07/18 04:59 05:59 05:59 Intake Total Output Total Balance - Physical Exam Constitutional: other (thin, anxious) Ears, Nose, Mouth, Throat: moist mucous membranes Cardiovascular: tachycardia Respiratory: expiratory wheeze, other (poor air movement throughout) Gastrointestinal: normoactive bowel sounds Genitourinary: no bladder fullness Skin: warm Musculoskeletal: full muscle strength Neurologic: AAOx3, CN II-XII Intact Psychiatric: anxious ICD10 Worksheet Patient Problems: Problems Problem Status Onset Asthma exacerbation Acute Anxiety about health Acute Asthma Acute Asthma with exacerbation Acute Dehydration Acute Vertigo Acute
--- NOTE | 2018-01-06 14:46 | PDHOMEO2F ---
Home Oxygen Face to Face Home Orders: I certify that a physician or a nurse practitioner or physician's assistant professor of forestry has had a [id number] encounter with this patient on the date of this order due to the diagnosis listed, which relates to the primary reason the patient requires home oxygen. Alternative treatments have been tried, or considered, and deemed ineffective. It is anticipated that supplemental oxygen will result in improvement with treatment. Home oxygen qualifying diagnosis: Asthma exacerbation Home oxygen secondary diagnosis: Hypoxia SpO2 on room air (%): 85 Frequency of home oxygen needed: continuous Home oxygen liters per minute: 2 Home oxygen delivery device: nasal cannula Concentrator: Yes E-tanks for mobility and back up: Yes If ordering portable O2, is the patient mobile in the home?: Yes I certify that, based on these findings, the home oxygen is medically necessary for this patient for the following length of time. Length of time home oxygen needed: 1 month
--- NOTE | 2018-01-06 18:01 | ASMTCMCOM ---
CM Note CM Note Notes: Chart reviewed. Met with patient to review plan of care. 72 year old female admitted with asthma exacerbation. She is mildly tremulous and sitting in bed. She has not ambulated any distance yet and no therapies have been ordered. She would like to wait till her Butch is here to walk. Normally they are able to meet all of there needs independently. No needs anticipated at this time . CM available should needs arise. Date Signed: 01/06/2018 12:00 PM Electronically Signed By:Jennifer Howell RN
--- NOTE | 2018-01-06 18:35 | SOAPPROG ---
SOAP Progress Note Assessment/Plan: Assessment: Asthma exacerbation secondary to bronchitis. Significant for her,associated with hypoxemia and significant wheezing. Improving. Anxiety. On usual home medications. Seems to be better off of high-dose Solu- Medrol. Insomnia. Will add Ambien, melatonin at night. Prophylaxis: On enoxaparin, eating. Metabolic: No issues identified. Glucose is mildly high secondary to steroids Plan: Continue bronchodilator therapies, antibiotics. Continue prednisone. Ambien and melatonin at night to help with sleep. Continue Heleox per discretion of the patient. Probably discharge home tomorrow. Recommend completing a 7 day course of antibiotics at home and slow prednisone taper starting at 60 mg for 2 days then decreasing by 10 mg every 2 days. Follow-up with me in the office in 2-3 weeks. Discussed with the patient. Subjective: Feels better. Still with some shortness of breath, wheezing. On 2 L, was able to walk in the halls. Objective: Vital Signs Temp Pulse Resp BP Pulse Ox 36.8 C 90 18 152/96 H 93 01/06/18 16:00 01/06/18 16:00 01/06/18 16:00 01/06/18 16:00 01/06/18 16:00 Laboratory Results 01/04/18 06:45 01/05/18 05:10 01/05/18 01/06/18 01/07/18 04:59 05:59 05:59 Intake Total 900 Output Total Balance 900 Physical Exam - Physical Exam General Appearance: alert, no apparent distress EENT: other (Oxygen in place at 2 L) Neck: normal inspection (No JVD) Respiratory: wheezing (Present bilaterally, scattered, not tight), No respiratory distress, No accessory muscle use, No rales, No rhonchi (Some central congestion with cough without pearl rhonchi) Cardiac/Chest: regular rate, rhythm, No gallop Abdomen: normal bowel sounds, non-tender Skin: normal color, warm/dry Extremities: No pedal edema Neuro/Psych: no motor/sensory deficits, No cognition abnormalities ICD10 Worksheet Patient Problems: Problems Problem Status Onset Asthma Acute Asthma exacerbation Acute Asthma with exacerbation Acute Vertigo Acute Dehydration Acute Anxiety about health Acute
[2018-01-06] MEDS: MELATONIN 3 MG TAB PO SCH (20:50)
--- NOTE | 2018-01-07 06:15 | HOSPPROG ---
Hospitalist Progress Note Assessment/Plan: #Acute asthma exacerbation -due to viral infection. Improved today. Down to 3L NC -Nebs, Azithro, pred taper, day abx #Rhino/enterovirus URI -supportive care, cough suppressants #Leukocytosis: resolved #Hypovolemic hypernatremia: mild #Acute hypoxic resp failure: using less oxygen #Insomnia: melatonin #Diet: reg #DVT ppx: lovenox #Disp: Dc today Subjective: feeling better. less SOB Objective: Vital Signs Temp Pulse Resp BP Pulse Ox 37.0 C 72 16 154/97 H 96 01/07/18 04:00 01/07/18 04:00 01/07/18 04:00 01/07/18 04:00 01/07/18 04:00 Laboratory Results 01/04/18 06:45 01/05/18 05:10 01/06/18 01/07/18 01/08/18 05:59 05:59 05:59 Intake Total 900 Output Total Balance 900 - Physical Exam Constitutional: no apparent distress, chronically ill appearing Eyes: PERRL Ears, Nose, Mouth, Throat: moist mucous membranes, hearing normal Cardiovascular: regular rate and rhythym Respiratory: expiratory wheeze Gastrointestinal: normoactive bowel sounds Genitourinary: no bladder fullness Skin: warm Musculoskeletal: full muscle strength Neurologic: AAOx3, asterixes Psychiatric: anxious ICD10 Worksheet Patient Problems: Problems Problem Status Onset Asthma exacerbation Acute Anxiety about health Acute Asthma Acute Asthma with exacerbation Acute Dehydration Acute Vertigo Acute
[2018-01-07] MEDS: IPRATROPIUM/ALBUTEROL 3 ML DEYVIAL IH SCH ×2 (06:17→11:00)
[2018-01-07 08:49] VITALS: BP 153/90; TEMP 98.1
[2018-01-07] MEDS ORDERED: predniSONE 20 MG TAB PO SCH (09:00)
[2018-01-07] MEDS: predniSONE 20 MG TAB PO SCH (09:16)
[2018-01-07] MEDS: ENOXAPARIN 40 MG/0.4 ML SYR SC SCH (10:09)
[2018-01-07] MEDS: AZITHROMYCIN 250 MG TAB PO SCH (10:09)
[2018-01-07] MEDS: BUDESONIDE 0.25MG/2ML DEYVIAL (5/POUCH) IH SCH (11:00)
[2018-01-07 11:23] VITALS: PULSE 75; RESP 16; O2SAT 95
--- NOTE | 2018-01-07 12:56 | GDS ---
[f rep st] DISCHARGE SUMMARY DISCHARGE DIAGNOSES: 1. Acute hypoxic respiratory failure. 2. Rhino/enterovirus upper respiratory infection. 3. Leukocytosis. 4. Hypovolemic hypernatremia. 5. Acute asthma exacerbation. 6. Insomnia. HISTORY OF PRESENT ILLNESS: A 72-year-old female, well known to Dr. Moncada for management of asthma. She presented with a sudden onset of severe shortness of breath. She had been started on an antibiotic by him a few days prior for concern of infection. Some of her symptoms did improve with this, however breathing became an issue. She was brought to the ER and initiated on Heliox and nebs. HOSPITAL COURSE BY PROBLEM: 1. Acute asthma exacerbation: Secondary to acute viral upper respiratory infection. She was treated with Heliox, IV Solu-Medrol, nebs and azithromycin. Her symptoms are much improved. She was initially requiring 8 L oxygen, is now on 2, which she will be discharged home on, as well as a prednisone taper and azithromycin. 2. Acute hypoxic respiratory failure: Secondary to asthma exacerbation. Again , plan as stated above. 3. Leukocytosis: Secondary to acute infection. This is resolved. 4. Hypernatremia: Secondary to insensible losses. This resolved. 5. Hypothyroidism: Resume home medications. 6. Anxiety: Resume home medications. 7. Insomnia: Ambien. DISPOSITION: The patient is stable for discharge home with oxygen. NEW MEDICATIONS: prednisone taper decreased by 10 mg q.2 days. Azithromycin. FOLLOW UP: Dr. Kashmir Moncada. /[id number]/MODL MTDD
== END 2018-01-07 13:32 | disposition home or self-care (01) | DRG 202 ==
LOC: EDUNIT# → F2N 21:17 → F3E 01-05 18:23
PROVIDERS: ADMIT Hospitalist; ATTEND Hospitalist
DX: J45.901 Unspecified asthma with (acute) exacerbation (principal); J96.01 Acute respiratory failure with hypoxia; J20.6 Acute bronchitis due to rhinovirus; E86.1 Hypovolemia; E87.0 Hyperosmolality and hypernatremia; G47.00 Insomnia, unspecified; E03.9 Hypothyroidism, unspecified
CPT/HCPCS: 96365; J1650; J2930; J3475; J7512; J7626

== ENCOUNTER 2018-06-30 04:05 | Observation (INO) | payer OTHER ==
[2018-06-30] MEDS ORDERED: methylPREDNISolone SOD SUCC 125 MG/2 ML VIAL IVP ONE (04:07)
[2018-06-30] MEDS ORDERED: NS 1,000 ML IV ONE (04:07)
[2018-06-30] MEDS ORDERED: IPRATROPIUM/ALBUTEROL 3 ML DEYVIAL IH ONE (04:07)
[2018-06-30] MEDS ORDERED: IPRATROPIUM/ALBUTEROL 3 ML DEYVIAL ONE (04:08)
[2018-06-30 04:20] LABS: PLATELET COUNT 315 10^3/uL (150-400)
--- NOTE | 2018-06-30 04:35 | EDPHY ---
H & P Stated Complaint: asthma attack Time Seen by Provider: 06/30/18 04:39 HPI/ROS: HPI CHIEF COMPLAINT: Asthma attack, shortness of breath HISTORY OF PRESENT ILLNESS: 72-year-old female presents emergency room by EMS for shortness of breath, wheezing, stating that she is having an asthma attack. She states this started earlier this evening. Progressively got worse throughout the night. EMS. Found her to be in mild distress but a room air saturation 94%.. She presents emergency room with worsening shortness of breath , wheezing, dry cough nonproductive. Denies any fever chest pain. Past Medical History: Asthma Past Surgical History: Denies recent surgery Social History: Denies drugs alcohol tobacco Family History: Noncontributory ROS REVIEW OF SYSTEMS: 10 Systems were reviewed and negative with the exception of the elements mentioned in the history of present illness. Exam Constitutional elderly, nontoxic triage nursing summary reviewed, vital signs reviewed, awake/alert. Eyes normal conjunctivae and sclera, EOMI, PERRLA. HENT normal inspection, atraumatic, moist mucus membranes, no epistaxis, neck supple/ no meningismus, no raccoon eyes. Respiratory wheezing throughout all lung de luna. Good air movement though. Cardiovascular rate normal, regular rhythm, no murmur, no edema, distal pulses normal. Gastrointestinal soft, non-tender, no rebound, no guarding, normal bowel sounds, no distension, no pulsatile mass. Genitourinary no CVA tenderness. Musculoskeletal no midline vertebral tenderness, full range of motion, no calf swelling, no tenderness of extremities, no meningismus, good pulses, neurovascularly intact. Skin pink, warm, & dry, no rash, skin atraumatic. Neurologic awake, alert and oriented x 3, AAOx3, moves all 4 extremities equally, motor intact, sensory intact, CN II-XII intact, normal cerebellar, normal vision, normal speech. Psychiatric normal mood/affect. Heme/Lymph/Immune no lymphadenopathy. Differential Diagnosis: Includes but is not limited to in a particular order acute asthma attack, asthma exacerbation, pneumonia Medical Decision Making: Plan for this patient DuoNeb breathing treatment, received IV Solu-Medrol by EMS, supplemental oxygen, chest x-ray, blood work, re -evaluate. EKG troponin. Re-evaluation: ED x-ray chest one view: No focal pneumonia no pneumothorax. Lung lung de luna. EKG interpretation by me on record in [facility] system. Impression time of EKG sinus tach 109, no ST elevation. Q-waves noted V1 V2. No acute ischemia otherwise. 0501: Patient getting a continuous neb at this time. I have re-evaluate her she still has wheezing. She received IV Solu-Medrol ready. She is requesting Ativan. Will give a dose. Additionally she receiving IV fluids. Chest x-ray been reviewed shows no pneumonia. Blood work reviewed. Patient need to be admitted to the hospitalist service for acute asthma exacerbation. Source: Patient, EMS - Personal History Current Tetanus/Diphtheria Vaccine: Yes - Medical/Surgical History Hx Asthma: Yes Hx Chronic Respiratory Disease: No Hx Diabetes: No Hx Cardiac Disease: No Hx Renal Disease: No Hx Cirrhosis: No Hx Alcoholism: No Hx HIV/AIDS: No Hx Splenectomy or Spleen Trauma: No Other PMH: asthma, hypothyroid, dizziness vertigo, chronic sinusitis - Social History Smoking Status: Never smoked Constitutional: Initial Vital Signs O2 Sat (%) 96 06/30/18 04:07 O2 Delivery Mode Heliox O2 (L/minute) 2 Allergies/Adverse Reactions: No Known Allergies Allergy (Verified 06/30/18 04:11) Home Medications: Medication Instructions Recorded T3/T4 Thyroid Compound 1 cap PO DAILY 06/30/18 Albuterol Sulfate [Proair Hfa] 1 - 2 puffs IH Q4H PRN 06/30/18 Herbals/Supplements -Info Only 1 ea PO DAILY 06/30/18 [place]-3 Fatty Acids [Fish Oil 1000 1,000 mg PO DAILY 06/30/18 mg (*)] Vitamin B Complex [Vitamin B 1 each PO DAILY 06/30/18 Complex (OTC)] Zolpidem Tartrate [Ambien 5MG (*)] 5 mg PO HS 06/30/18 diphenhydrAMINE HCL 25 - 50 mg PO Q6H 06/30/18 [Diphenhydramine HCl] predniSONE 10 mg PO DAILY #30 tab 07/01/18 Medical Decision Making - Data Points Laboratory Results: Laboratory Results 06/30/18 04:00 06/30/18 04:00 Medications Given: Discontinued Medications Albuterol (Proventil Neb) 3 ml IH Q2HRS PRN PRN Reason: Short of Breath/Dyspnea Stop: 12/27/18 06:28 Last Admin: 07/01/18 09:15 Dose: 3 ml Albuterol/Ipratropium (Duoneb) 3 ml IH EDNOW ONE Stop: 06/30/18 04:08 Last Admin: 06/30/18 04:23 Dose: 3 ml Budesonide (Budesonide 0.5mg/2ml Neb) 0.5 mg IH BID [facility] Stop: 12/27/18 08:59 Last Admin: 07/01/18 09:07 Dose: 0.5 mg Enoxaparin Sodium (Lovenox) 40 mg SC DAILY [facility] Stop: 12/27/18 08:59 Last Admin: 07/01/18 08:41 Dose: 40 mg Sodium Chloride (Ns) 1,000 mls @ 0 mls/hr IV ONCE ONE; Wide Open PRN Reason: Protocol Stop: 06/30/18 04:08 Last Admin: 06/30/18 04:22 Dose: 1,000 mls Sodium Chloride (Ns) 1,000 mls @ 75 mls/hr IV CONT [facility] Stop: 12/27/18 06:29 Last Admin: 06/30/18 21:21 Dose: 1,000 mls Lorazepam (Ativan Injection) 0.5 mg IVP EDNOW ONE Stop: 06/30/18 05:02 Last Admin: 06/30/18 05:04 Dose: 0.5 mg Lorazepam (Ativan Injection) 0.5 mg IVP ONCE ONE Stop: 06/30/18 07:59 Last Admin: 06/30/18 08:21 Dose: 0.5 mg Melatonin (Melatonin) 3 mg PO HS [facility] Stop: 12/27/18 20:59 Last Admin: 06/30/18 21:21 Dose: 3 mg Methylprednisolone Sodium Succinate (Solu-Medrol) 125 mg IVP EDNOW ONE Stop: 06/30/18 04:08 Last Admin: 06/30/18 04:23 Dose: Not Given Methylprednisolone Sodium Succinate (Solu-Medrol) 60 mg IVP Q12H [facility] Stop: 12/27/18 15:59 Last Admin: 07/01/18 03:00 Dose: 60 mg Miscellaneous Medication ( T3/T4 Thyroid Compound) 1 cap PO DAILY [facility] Stop: 12/28/18 08:59 Last Admin: 07/01/18 08:41 Dose: 1 cap Montelukast Sodium (Singulair) 10 mg PO DAILY@1800 [facility] Stop: 12/27/18 17:59 Last Admin: 06/30/18 17:47 Dose: 10 mg Ondansetron HCl (Zofran) 4 mg IVP Q4HRS PRN PRN Reason: Nausea/Vomiting, Can't Take PO Stop: 12/27/18 06:28 Last Admin: 07/01/18 03:02 Dose: 4 mg Zolpidem Tartrate (Ambien) 5 mg PO HS [facility] Stop: 12/27/18 20:59 Last Admin: 07/01/18 00:39 Dose: 5 mg Point of Care Test Results: Chemistry 06/30/18 04:16 POC Troponin I 0.01 ng/mL ng/mL (0.00-0.08) Departure - Departure Disposition: [facility] Acute Clinical Impression: Asthma Qualifiers: Asthma severity: moderate Asthma persistence: unspecified Asthma complication type: with acute exacerbation Qualified Code(s): J45.901 - Unspecified asthma with (acute) exacerbation Condition: Fair
[2018-06-30] MEDS ORDERED: ALBUTEROL 3 ML DEYVIAL ONE (04:37)
[2018-06-30] MEDS ORDERED: LORazepam 2 MG/ML INJ IVP ONE ×2 (05:01→07:58)
[2018-06-30] MEDS ORDERED: LORazepam 2 MG/ML INJ ONE (05:01)
[2018-06-30] MEDS ORDERED: ACETAMINOPHEN 325 MG TAB PO PRN (06:29)
[2018-06-30] MEDS ORDERED: ONDANSETRON 4 MG/2 ML VIAL IVP PRN (06:29)
[2018-06-30] MEDS ORDERED: ALBUTEROL 3 ML DEYVIAL IH PRN (06:29)
--- NOTE | 2018-06-30 06:59 | CPEKG ---
Test Reason : OPEN Blood Pressure : / mmHG Vent. Rate : 109 BPM Atrial Rate : 109 BPM P-R Int : 144 ms QRS Dur : 085 ms QT Int : 355 ms P-R-T Axes : 082 -24 055 degrees QTc Int : 479 ms Sinus tachycardia Right atrial enlargement Borderline left axis deviation Abnormal inferior Q waves Confirmed by Wilbert Almeida ([id number]) on 06/30/2018 6:58:49 AM Referred By: Confirmed By:Wilbert Almeida
[2018-06-30] MEDS: NS 1,000 ML IV SCH ×2 (08:21→21:21)
[2018-06-30] MEDS: ENOXAPARIN 40 MG/0.4 ML SYR SC SCH (08:21)
[2018-06-30] MEDS ORDERED: diphenhydrAMINE 25 MG CAP PO PRN (09:47)
[2018-06-30] MEDS: BUDESONIDE 0.5 MG/2 ML AMPUL.NEB IH SCH ×2 (09:59→21:47)
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
--- NOTE | 2018-06-30 12:33 | ASMTCMCOM ---
CM Note CM Note Notes: 06/30/2018 Case Management Note Met pt during rounds this morning. Pt admitted for asthma exacerbation. There are no therapy evals ordered at this time. There are no case management d/c needs identified at this time. Case Management d/c poc: anticipating independent with follow up as directed. Case Management available if needs change. Date Signed: 06/30/2018 12:33 PM Electronically Signed By:Gila Liu RN
[2018-06-30] MEDS: methylPREDNISolone SOD SUCC 40 MG/ML VIAL IVP SCH (17:45)
[2018-06-30] MEDS ORDERED: MONTELUKAST SODIUM 10 MG TAB PO SCH (18:00)
[2018-06-30] MEDS ORDERED: ZOLPIDEM TARTRATE 5 MG TAB PO SCH (21:00)
[2018-06-30] MEDS ORDERED: MELATONIN 3 MG TAB PO SCH (21:00)
[2018-07-01] MEDS: methylPREDNISolone SOD SUCC 40 MG/ML VIAL IVP SCH (03:00)
[2018-07-01] MEDS: ENOXAPARIN 40 MG/0.4 ML SYR SC SCH (08:41)
[2018-07-01] MEDS ORDERED: PNEUMOC 13-VAL CONJ-DIP CRM/PF 0.5 ML SYR IM ONE (08:51)
[2018-07-01] MEDS ORDERED: [UNRECOGNIZED DRUG - OTHER] PO SCH (09:00)
[2018-07-01] MEDS ORDERED: LEVOTHYROXINE PO SCH (09:00)
[2018-07-01] MEDS ORDERED: LIOTHYRONINE PO SCH (09:00)
[2018-07-01] MEDS: BUDESONIDE 0.5 MG/2 ML AMPUL.NEB IH SCH (09:07)
[2018-07-01 12:42] VITALS: BP 122/71
--- NOTE | 2018-07-01 13:33 | ASMTLACE ---
LACE Length of stay for Answers: 1 day current admission Acuity / Level of Answers: No Care: Did the patient have an inpatient admission? Comorbidities - select Answers: Chronic pulmonary disease all that apply Other Notes: insomnia, vertigo, hypo thy roidism,marijuana use Social determinants Answers: Mental health diagnosis (anxiety, depression, pers onality disorders, etc.) Score: 7 Date Signed: 07/01/2018 01:33 PM Electronically Signed By:GRAY Knight
--- NOTE | 2018-07-01 13:35 | ASMTDCNOTE ---
Case Management Discharge Discharge Order Complete? Answers: Yes Patient to Obtain Answers: via Family Medications Transportation Arranged Answers: Family/Friends EMTALA Complete Answers: No Case Management Transport Answers: No Form Complete Faxed Final Orders Answers: No Agency/Facility Transfer Answers: No Report Printed & Faxed to Receiving Agency Family Notified Answers: No Discharge Comments Notes: Pt is being discharged today. Pt will d/c independent without any needs. CM available for changes. Plan: Independent Date Signed: 07/01/2018 01:34 PM Electronically Signed By:GRAY Knight
--- NOTE | 2018-07-01 15:23 | ASDISCHSUM ---
Discharge Information Plan Status:Home with No Needs Medically Cleared to Leave:07/01/2018 Discharge Date:07/01/2018 02:15 PM CM D/C Disposition:Home, Routine, Self-Care ADT D/C Disposition:Home, Routine, Self-Care Projected Discharge Date:07/01/2018 02:15 PM Transportation at D/C:Self Discharge Delay Reason: Follow-Up Date:07/01/2018 02:15 PM Discharge Slot: Final Diagnosis: Placement Information Patient Contact Information Contact Name:TALHA Relationship: Address:[address] [place] [address] [place] City:[place] Alternate Phone: State/Zip Code:[place] [address] Email: Financial Information Financial Class:Medicare Advantage Plans Primary Plan Desc:[employer] ADV Primary Plan Number:[id number] Secondary Plan Desc: Secondary Plan Number: Assessment Information LACE LACE Length of stay for Answers: 1 day current admission Acuity / Level of Answers: No Care: Did the patient have an inpatient admission? Comorbidities - select Answers: Chronic pulmonary disease all that apply Other Notes: insomnia, vertigo, hypo thy roidism,marijuana use Social determinants Answers: Mental health diagnosis (anxiety, depression, pers onality disorders, etc.) Score: 7 Date Signed: 07/01/2018 01:33 PM Electronically Signed By:GRAY Knight [facility] Progress Note CM Note CM Note Notes: 06/30/2018 Case Management Note Met pt during rounds this morning. Pt admitted for asthma exacerbation. There are no therapy evals ordered at this time. There are no case management d/c needs identified at this time. Case Management d/c poc: anticipating independent with follow up as directed. Case Management available if needs change. Date Signed: 06/30/2018 12:33 PM Electronically Signed By:Gila Liu RN Case Management Discharge Plan Note Case Management Discharge Discharge Order Complete? Answers: Yes Patient to Obtain Answers: via Family Medications Transportation Arranged Answers: Family/Friends EMTALA Complete Answers: No Case Management Transport Answers: No Form Complete Faxed Final Orders Answers: No Agency/Facility Transfer Answers: No Report Printed & Faxed to Receiving Agency Family Notified Answers: No Discharge Comments Notes: Pt is being discharged today. Pt will d/c independent without any needs. CM available for changes. Plan: Independent Date Signed: 07/01/2018 01:34 PM Electronically Signed By:GRAY Knight Intervention Information Intervention Type:*HOLGUIN-Signed Date of Service:07/01/2018 11:44 AM Patient Type:Observation Staff Member:CELESTINA Liu, Gila Hours: Discipline: Severity: Comment:
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
== END 2018-07-01 14:15 | disposition home or self-care (01) ==
LOC: EDUNIT# → F2W 06:25
PROVIDERS: ADMIT Family Medicine; ATTEND Family Medicine
DX: J45.901 Unspecified asthma with (acute) exacerbation (principal); F41.8 Other specified anxiety disorders; E03.9 Hypothyroidism, unspecified; G47.00 Insomnia, unspecified; R42 Dizziness and giddiness
CPT/HCPCS: 71045; 93005; G0378; J1650; J2060; J2405; J2920; J7613; J7626; 84484-PO; 96374

== ENCOUNTER → 2019-02-20 | Outpatient (CLI) | payer OTHER | LOC: FIMAGING 15:33 | PROVIDERS: ATTEND Physician Assistant Surgical | DX: M48.02 Spinal stenosis, cervical region (principal); M50.30 Other cervical disc degeneration, unspecified cervical region ==

== ENCOUNTER → 2019-03-18 | Outpatient (CLI) | payer OTHER | LOC: BMCIMAGING 14:03 ==